=== PATIENT | male | born 1955 | race Caucasian/White ===

== ENCOUNTER 2017-02-16 11:10 | Inpatient (IN) | payer BC ==
[~2017-02-16] VITALS: Ht 182.9 cm; Wt 83.3 kg
--- NOTE | ~2017-02-16 | HEMODYNAMI ---
PATIENT:AKI MOSS MEDICAL RECORD: [id number] : 51 LOCATION:[facility] D.2118 ADMISSION DATE: 02/16/17 Generatedon:02/17/201712:25 Patient name: AKI MOSS Patient #: [id number] SSN: DO B: 1955 Date of study: 02/17/2017 Page: Of Hemodynamic Procedure Report Patient Data Patient Demographics Procedure consent was obtained First Name: AKI Gender: Male Last Name: AJAY : 1955 [facility] Initial: SAIMA Age: 61 year(s) Patient #: [id number] Race: Unknown Additional ID: [id number] Contact details Address: [address] [place] [address] [facility] State: [place] City: [place] Zip code: [address] Past Medical History Allergies Allergen Reaction Date Comments Reported Iodine 02/17/2017 Admission Admission Data Admission Date: 02/16/2017 Admission Time: 13:27 Room #: D2118 Lab Results Lab Result Date: 02/17/2017 Lab Result Time: 0:00 Biochemistry Name Units Result Min Max BUN mg/dl 15 --(--*-)-- 7 18 Creatinine mg/dl 1.1 --(--*-)-- 0.6 1.3 CBC Name Units Result Min Max Hemoglobin g/dl 14.3 --(*---)-- 13.5 17.5 Procedure Procedure Types Cath Procedure Diagnostic Procedure LHC LHC w/Coronaries Miscellaneous Procedures Moderate Sedation up to 15 minutes Procedure Description Procedure Date Procedure Date: 02/17/2017 Procedure Start Time: 12:10 Procedure End Time: 12:23 Procedure Staff Name Function Trevin Simons MD Performing Physician Nicole Vyas RN Nurse Bora Muhammad RT Monitor Danis Whitfield RT Scrub Procedure Data Cath Procedure Fluoroscopy Diagnostic fluoroscopy Total fluoroscopy Time: 1.9 time: 1.9 min min Diagnostic fluoroscopy Total fluoroscopy dose: 383 dose: 383 mGy mGy Contrast Material Contrast Material Type Amount (ml) Isovue 300 55 Entry Location Entry Primary Successful Side Size Upsize Upsize Entry Closure Mcclendon ccessful Closure Location (Fr) 1 (Fr) 2 (Fr) Remarks Device Remarks Radial Right 6 Fr Mechanical artery Short Compression Diagnostic catheters Device Type Used For End Catheter Placement Terumo 5Fr [place] 110cm LV Angiography catheter Procedure Complications No complications Procedure Medications Medication Administration Route Dosage Oxygen NC 2 l/min Heparin Flush Bag added to field 2 bags (1000units/500ml NS) Lidocaine 2% added to field 20 Radial Cocktail added to field 1 syringe (Verapomil 2mg/Nitro 400mcg/Heparin 1500units) Benadryl I.V. 25 mg Versed I.V. 1 mg Fentanyl I.V. 50 mcg Versed I.V. 1 mg Fentanyl I.V. 50 mcg Radial Cocktail I.A. 1 syringe (Verapomil 2mg/Nitro 400mcg/Heparin 1500units) Hemodynamics Rest Heart Rate: 82 (bpm) Pressure Samples Time Site Value (mmHg) Purpose Heart Use Rate(bpm) 12:15 LV 109/5,7 EDP 82 12:15 AO 114/68(89) Pullback 77 12:15 LV 120/7,9 Pullback 77 Gradients Valve Time Site 1 Site 2 Mean SEP/DFP Peak To Heart Use (mmHg) (sec/min) Peak Rate (mmHg) (bpm) Aortic 12:15 LV AO 4 15 6 77 120/7,9 114/68(89) Calculations Valve P-P Mean Valve Index Valve Source Name Gradient Area Flow (cm2) Aortic 6 4 6 4 Snapshots Pre Cath Intra NCS Post Cath Vital Signs Time Heart Resp SPO2 etCO2 UX2aedh NIBP (mmHg) Rhythm Pain Sedation Rate (ipm) (%) (mmHg) (mmHg) Status Level (bpm) 12:03:31 76 24 95 0 0 153/85(118) NSR 0 (11) 10(A) , No pain 12:07:49 74 16 97 0 0 142/78(108) NSR 0 (11) 10(A) , No pain 12:12:03 76 16 96 0 0 140/86(118) NSR 0 (11) 10(A) , No pain 12:16:17 71 16 96 0 0 112/67(95) NSR 0 (11) 9(A) , No pain 12:20:27 79 14 96 0 0 115/68(87) NSR 0 (11) 9(A) , No pain 12:22:21 76 14 96 0 0 123/74(108) NSR 0 (11) 9(A) , No pain Medications Time Medication Route Dose Verified Delivered Reason Notes Effectiveness by by 12:02:35 Oxygen NC 2 l/min Trevin Nicole Per [facility] Anthony fernandez MD 12:02:43 Heparin Flush added 2 bags Trevin Trevin used for Bag to [place] procedure (1000units/500ml field MD WRIGHT NS) 12:02:50 Lidocaine 2% added 20ml Trevin Trevin used for to vial Kristyn [place] procedure field MD WRIGHT 12:03:02 Radial Cocktail added 1 Trevin Trevin used for (Verapomil to syringe Kristyn [place] procedure 2mg/Nitro field MD WRIGHT 400mcg/Heparin 1500units) 12:03:58 Benadryl I.V. 25 mg Trevin Nicole Per [facility] Anthony fernandez MD 12:09:32 Versed I.V. 1 mg Trevin Nicole for sedation [facility]. Anthony Vyas RN, MD 12:09:52 Fentanyl I.V. 50 mcg Trevin Nicole for sedation [facility]. Anthony Vyas RN, MD 12:11:26 Radial Cocktail I.A. 1 Trevin Trevin for (Verapomil syringe Kristyn Kristyn vasodilation 2mg/Nitro MD WRIGHT 400mcg/Heparin 1500units) 12:12:30 Versed I.V. 1 mg Trevin Nicole for sedation [facility] Anthony Vyas RN, MD 12:12:41 Fentanyl I.V. 50 mcg Trevin Nicole for sedation [facility]. Anthony Vyas RN, MD Procedure Log Time Note 11:30:38 Bora Muhammad RT(R) sent for patient. Start room use. 11:37:48 Time tracking: Regular hours 11:37:53 Plan of Care:Hemodynamics will remain stable., Cardiac rhythm will remain stable., Comfort level will be maintained., Respiratory function will remain adequate., Patient/ family verbilizes understanding of procedure., Procedure tolerated without complication., Recovers from procedure without complications.. 11:40:34 Patient allergic to Iodine 11:41:20 Lab Result : BUN 15 mg/dl 11::20 Lab Result : Creatinine 1.1 mg/dl 11:41:20 Lab Result : Hemoglobin 14.3 g/dl 11:47:25 Patient received from PCU to CCL 1 Alert and oriented. Tansferred to table in Supine position. 11:47:27 Warm blankets applied, and claudia hugger turned on for patient comfort. 11:47:27 Correct patient and procedure confirmed by team. 11:47:28 Signed procedure consent form obtained from patient. 11:47:29 ECG and BP/O2 sat monitors applied to patient. 11:51:08 IV left antecubital D/C'd due to infiltration. 11:51:25 Is the patient allergic to Iodine/contrast media? Yes. 11:51:27 Was the patient premedicated? Yes 11:51:45 H&P Date Dictated: 02/16/2017 Within 30 days and on chart.. 11:51:46 Pre-procedure instructions explained to patient. 11:51:47 Pre-op teaching completed and patient verbalized understanding. 11:51:50 Family in patients room. 11:51:58 Patient NPO since Breakfast. 11:54:24 IV started by Nicole Vyas RN inleft forearm with a 20 gauge IV catheter with 0.9% NaCl at KVO. 11:54:31 Lab results completed and on chart. 12:02:24 Vital chart was started 12:02:35 Oxygen 2 l/min NC was administered by Nicole Vyas RN; Per physician; 12:02:43 Heparin Flush Bag (1000units/500ml NS) 2 bags added to field was administered by Trevin Simons MD; used for procedure; 12:02:50 Lidocaine 2% 20ml vial added to field was administered by Trevin Simons MD; used for procedure; 12:03:02 Radial Cocktail (Verapomil 2mg/Nitro 400mcg/Heparin 1500units) 1 syringe added to field was administered by Trevin Siomns MD; used for procedure; 12:03:58 Benadryl 25 mg I.V. was administered by Nicole Vyas RN; Per physician; 12:07:50 Is patient on blood thinner?No 12:07:54 ACC The patient was administered the following blood thiners within the last 24 hours: ACCAspirin 12:07:56 Patient diabetic? No. 12:07:57 ----Pre-sedation anethsthesia assessment.---- 12:07:59 Previous problem with sedation/anesthesia? No ? 12:08:00 Snore? No 12:08:03 Sleep apnea? No 12:08:06 Deviated septum? No 12:08:08 Opens mouth fully? Yes 12:08:09 Sticks out tongue? Yes 12:08:11 Airway obstruction? No ? 12:08:21 Dentures? No ? 12:08:25 Pre procedure: right dorsailis pedis pulse 1+ Palpable, but thready & weak; easily obliterated 12:08:29 Modified Gopal's test Ulnar < 7 seconds 12:08:46 Patient pain scale 0/10 ?. 12:08:50 Right Radial & Right Groin area was prepped with chlora-prep and draped in sterile fashion 12:08:51 Alarms reviewed by R. N. 12:08:52 Sharps counted by scrub and verified by R.N. 12:08:52 --------ALL STOP TIME OUT------ 12:08:53 Final Timeout: patient, procedure, and site verified with staff and physician. All members of the team are in agreement. 12:08:55 Right Radial & Right Groin site verified by team. 12:08:58 Physical assessment completed. ASA score P 2 - A patient with mild systemic disease as per Trevin Simons MD. 12:09:03 Sedation plan: IV Moderate Sedation Versed, Fentanyl 12:09:14 Use device set Radial Dx 12:09:15 Acist Syringe opened to sterile field. 12:09:15 Medline Cath Pack opened to sterile field. 12:09:15 Bag Decanter opened to sterile field. 12:09:16 Terumo 6Fr Slender Glidesheath opened to sterile field. 12:09:16 St Harish 260cm J .035 wire opened to sterile field. 12:09:17 Acist Hand Control opened to sterile field. 12:09:17 Acist Manifold opened to sterile field. 12:09:17 Tegaderm 4 x 4 opened to sterile field. 12:09:18 MBrace Wrist Support opened to sterile field. 12:09:32 Versed 1 mg I.V. was administered by Nicole Vyas RN; for sedation; 12:09:52 Fentanyl 50 mcg I.V. was administered by Nicole Vyas RN; for sedation; 12:10:48 Procedure started. 12:10:48 Full Disclosure recording started 12:10:57 Local anesthetic to right radial artery with Lidocaine 2% by Trevin Simons MD.INITIAL ACCESS ONLY 12:11:13 A 6 Fr Short sheath was inserted into the Right Radial artery 12:11:24 A Terumo 5Fr [place] 110cm catheter was advanced over the wire and used for LV Angiography. 12:11:26 Radial Cocktail (Verapomil 2mg/Nitro 400mcg/Heparin 1500units) 1 syringe I.A. was administered by Trevin Simons MD; for vasodilation; 12:11:27 Zero performed for pressure channel P1 12:12:30 Versed 1 mg I.V. was administered by Nicole Vyas RN; for sedation; 12:12:41 Fentanyl 50 mcg I.V. was administered by Nicole Vyas RN; for sedation; 12:14:15 Zero performed for pressure channel P1 12:14:19 Zero performed for pressure channel P1 12:15:32 LV angiography performed. 12:15:34 LV gram done using BAUTISTA 12:16:06 EF : 55 % 12:16:17 LV hemodynamics recorded. 12:16:20 Injector settings: Ml/sec: 5, Volume: 15, 12:16:57 LCA angiography performed. 12:19:21 Catheter removed. 12:19:29 Terumo TR Band Standard opened to sterile field. 12:19:37 Contrast amount:Isovue 300 55ml. 12:19:44 Sheath removed intact; hemostasis achieved with Mechanical Compression to the Right Radial artery. 12:20:56 Procedure ended.(Physican Out) 12:21:54 Fluoroscopy time 01.90 minutes. 12::59 Fluoroscopy dose: 383 mGy 12::59 Flurop Dose total: 383 12:22:01 Sharps counted by scrub and verified by R.N. 12:22:04 TR band inflated with 10cc of air. 12:22:05 Insertion/operative site no bleeding no hematoma. 12:22:08 Post-op/insertion site Right Femoral artery dressed using a 4 x 4 and Tegaderm. 12:22:12 Post right femoral artery:stable 12:22:13 Post Procedure Pulses reassessed and unchanged 12:22:18 Post procedure rhythm: sinus rhythm 12:22:20 Post procedure instruction explained to patient.Patient verbalizes understanding. 12:22:21 Procedure and supply charges have been captured, reviewed, submitted and are correct. 12:22:50 Procedure Complication : No complications 12::54 Vital chart was stopped 12::54 See physician's report for complete and final results. 12:23:00 Report given to PCU. 12:23:04 Patient transfered to PCU with Bed. 12:23:06 Procedure ended. 12:23:06 Full Disclosure recording stopped 12:23:17 End room use (Document Last) 12:23:35 Procedure type changed to Cath procedure, Diagnostic procedure, LHC, LHC w/Coronaries, Miscellaneous Procedures, Moderate Sedation up to 15 minutes Device Usage Item Name Manufacture Quantity Catalog Hospital Part Current Minimal Lot# / Number Charge Number Stock Stock Serial# Code Acist Acist 1 87799 267692 534409 015783 20 Syringe Medical Systems Inc Medline Cardinal 1 [id number] 48982 403260 5 Cath Pack Health Bag Microtek 1 2001S 691217 07127 062002 5 DecDARA [employer] Terumo 6Fr Terumo 1 [id number] 205095 026618 218814 [address] St Harish 1 [id number] 593104 096446 410432 30 260cm J .035 wire Acist Hand Acist 1 57068 590107 650410 451578 5 Control Medical Systems Inc Acist Acist 1 34704 677199 976613 388849 5 Manifold Medical Systems Inc Tegaderm 4 3M 1 1626W 373262 708341 775887 5 x 4 MBrace Advanced 1 140-0250-00 124849 08094 018986 5 Wrist Vascular Support Dynamics Terumo 5Fr Terumo 1 40-9669 301554 176324 601554 5 [place] 110cm catheter Terumo TR Terumo 1 [id number] 864858 920258 639176 40 Band Standard Signature Audit Semora Stage Time Signature Unsigned Intra-Procedure 02/17/2017 Bora Muhammad 12:25:09 PM RT(R) Signatures Monitor : Bora Muhammad RT Signature : Date : Time : [place] [id number] [place] [address]
[2017-02-16 11:44] LABS: BASOPHILS 0.5 % (0.0-2.0); EOSINOPHILS 2.7 % (0-7); HEMATOCRIT 40.9 % (42.0-54.0); HEMOGLOBIN 14.3 g/dL (13.5-17.5); IMMATURE GRANULOCYTES 0.3 % (0-5); LYMPHOCYTES 30.6 % (15-50); MCH 30.9 pg (26.0-34.0); MCV 88.3 fL (80.0-100.0); MEAN PLATELET VOLUME 8.5 fL (7.4-10.4); MONOCYTES 5.9 % (2-11); PLATELET COUNT 211 10x3/uL (130-400); RBC 4.63 10x6/uL (4.20-6.10); WBC 9.9 10x3/uL (4.8-10.8)
[2017-02-16 11:59] LABS: ALBUMIN 3.7 g/dL (3.4-5.0); ALKALINE PHOSPHATASE 107 U/L (46-116); ALT (SGPT) 24 U/L (10-68); CALC OSMOLALITY 280 mosm/kg (275-300); CARBON DIOXIDE 27.4 mmol/L (21.0-32.0); CHLORIDE - SERUM 103 mmol/L (98-107); CREATININE - SERUM 0.9 mg/dL (0.6-1.3); GLUCOSE 107 mg/dL (74-106); POTASSIUM - SERUM 4.2 mmol/L (3.5-5.1); PROTEIN - SERUM 7.6 g/dL (6.4-8.2); SODIUM 140 mmol/L (136-145); UREA NITROGEN 18 mg/dL (7-18); eGFR NON AFRICAN AMERICAN > 90 mL/min (90-120)
[2017-02-16 12:11] LABS: CHOL - HDL RATIO 5.2 ratio (2.3-4.9); CHOLESTEROL, TOTAL 202 mg/dL (0-200); CREATINE KINASE 249 UL (21-232); HDL CHOLESTEROL 39 mg/dL (32-96); LDL CHOLESTEROL 117 mg/dL (0-100); TRIGLYCERIDE 231 mg/dL (30-200)
[2017-02-16 12:12] LABS: TROPONIN-I < 0.017 ng/mL (0.000-0.060)
[2017-02-16] MEDS ORDERED: LISINOPRIL10 MG PO (15:35)
[2017-02-16] MEDS ORDERED: TRAZODONE HCL50 MG PO (15:36)
[2017-02-16 16:11] VITALS: BP 131/71
[2017-02-16 17:37] VITALS: BP 131/71; BMI 23.1
--- NOTE | 2017-02-16 17:40 | NUR ---
PT IS ALERT. ASSESSMENT DONE PER GODFREY. NO OTHJER NEEDS AT THIS TIME. WILL CONTINUE TO MONITOR.
--- NOTE | 2017-02-16 19:46 | NUR ---
RESUMED CARE OF PT, LYING IN BED RESPIRATIONS EVEN AND UNLABORED ON 2LPM VIA NC. 76 SR ON TELEMETRY. LEFT AC SALINE LOCKED. NO NEEDS VOICED AT THIS TIME. CALL LIGHT IN REACH. WILL CONTINUE TO MONITOR. SEE NURSE ASSESSMENT.
[2017-02-17] VITALS: BP 128/70
--- NOTE | 2017-02-17 02:19 | NUR ---
LYING IN BED, CALL LIGHT IN REACH. WILL CONTINUE WITH PLAN OF CARE. 61 SR ON TELEMETRY
[2017-02-17 04:00] VITALS: BP 151/78
[2017-02-17 08:04] VITALS: BP 149/77
[2017-02-17 09:22] LABS: BASOPHILS 0.4 % (0.0-2.0); EOSINOPHILS 1.8 % (0-7); HEMATOCRIT 40.6 % (42.0-54.0); HEMOGLOBIN 14.3 g/dL (13.5-17.5); IMMATURE GRANULOCYTES 0.2 % (0-5); LYMPHOCYTES 31.6 % (15-50); MCH 30.6 pg (26.0-34.0); MCHC 35.2 g/dL (31.0-37.0); MCV 86.9 fL (80.0-100.0); MEAN PLATELET VOLUME 8.5 fL (7.4-10.4); MONOCYTES 6.8 % (2-11); NEUTROPHILS 59.2 % (40-80); PLATELET COUNT 212 10x3/uL (130-400); RBC 4.67 10x6/uL (4.20-6.10); RDW 12.9 % (11.5-14.5); WBC 9.9 10x3/uL (4.8-10.8)
[2017-02-17 09:31] LABS: CALCIUM 8.9 mg/dL (8.5-10.1); CREATININE - SERUM 1.1 mg/dL (0.6-1.3)
--- NOTE | 2017-02-17 09:32 | NUR ---
TELEMETRY SR. RESP UL ON 02 2L NC. CALL LIGHT IN REACH. WILL CONT. PLAN OF CARE.
--- NOTE | 2017-02-17 11:49 | NUR ---
PRE-OPS GIVEN. TO LIFT MANAGER BY BED.
--- NOTE | 2017-02-17 12:54 | NUR ---
BACK FROM CORRECTIVE AND MANUAL ARTS THERAPIST. VS WNL. RIGHT WRIST STABLE WITH TR BAND INTACT. WILL MONITOR.
--- NOTE | 2017-02-17 15:00 | NUR ---
TR BAND DCD WITHOUT BLEEDING OR HEMATOMA NOTED. WILL MONITOR.
--- NOTE | 2017-02-17 16:07 | NUR ---
CR IONIZED CA+ CALLED TO SHAINA HENNESSY FOR DR. PRINCE.
--- NOTE | 2017-02-17 19:00 | NUR ---
RECEIVED REPORT AND ASSUMED PT CARE FROM DAY SHIFT NURSE @ THIS TIME.
[2017-02-17 21:18] VITALS: BP 176/96
[2017-02-18 00:23] VITALS: BP 128/64
[2017-02-18 04:25] VITALS: BP 112/52
[2017-02-18 07:00] VITALS: BP 134/71
--- NOTE | 2017-02-18 07:41 | NUR ---
RECEIVED PT IN BED AAOX 4 RESP UNLABORED DENIES ANY NEEDS OR DISCOMFORT NAD NOTED
[2017-02-18 12:00] VITALS: BP 116/63
[2017-02-18 14:20] LABS: COLD SCREEN @ 4 DEGREES NEGATIVE (NEGATIVE); COLD SCREEN ROOM TEMP NEGATIVE (NEGATIVE)
[2017-02-18 16:00] VITALS: BP 122/65
--- NOTE | 2017-02-18 19:15 | NUR ---
INITIAL ROUNDS MADE. PT SITTING UP IN BED WITH FAMILY IN ROOM. DISCUSSED PLAN OF CARE. PT DENIES NEEDS OR CONCERNS AT THIS TIME. CALL LIGHT IN REACH. WILL CONT TO MONITOR.
[2017-02-18 20:47] VITALS: BP 132/68
--- NOTE | 2017-02-18 23:25 | NUR ---
SPLIT AND DRUM ROOM SUPERVISOR AT BEDSIDE FOR VS. NEEDS ADDRESSED, CALL LIGHT IN REACH. WILL CONT TO MONITOR.
[2017-02-19 00:24] VITALS: BP 153/78
[2017-02-19 04:39] VITALS: BP 146/71
[2017-02-19 05:01] LABS: BASOPHILS 0.2 % (0.0-2.0); HEMATOCRIT 36.4 % (42.0-54.0); HEMOGLOBIN 12.5 g/dL (13.5-17.5); IMMATURE GRANULOCYTES 0.3 % (0-5); LYMPHOCYTES 24.9 % (15-50); MCHC 34.3 g/dL (31.0-37.0); MCV 87.5 fL (80.0-100.0); MEAN PLATELET VOLUME 8.4 fL (7.4-10.4); MONOCYTES 10.5 % (2-11); NEUTROPHILS 63.1 % (40-80); PLATELET COUNT 200 10x3/uL (130-400); RBC 4.16 10x6/uL (4.20-6.10)
[2017-02-19 05:06] LABS: WBC 14.5 10x3/uL (4.8-10.8)
[2017-02-19 05:09] LABS: HEMOGLOBIN A1C 5.2 % (4.8-6.0)
[2017-02-19 05:11] LABS: APTT 25.2 SECONDS (22.8-39.4); INR 0.92 (0.85-1.17); PROTIME 12.2 SECONDS (11.6-15.0)
--- NOTE | 2017-02-19 05:15 | NUR ---
NO CHANGES IN ASSESSMENT. CALL LIGHT IN REACH. DENIES NEEDS. CONT TO MONITOR.
[2017-02-19 05:28] LABS: ALBUMIN 3.1 g/dL (3.4-5.0); ALKALINE PHOSPHATASE 95 U/L (46-116); ALT (SGPT) 19 U/L (10-68); BILIRUBIN - TOTAL 0.47 mg/dL (0.2-1.3); CALC OSMOLALITY 284 mosm/kg (275-300); CALCIUM 7.8 mg/dL (8.5-10.1); CARBON DIOXIDE 26.5 mmol/L (21.0-32.0); CHLORIDE - SERUM 106 mmol/L (98-107); CHOLESTEROL, TOTAL 199 mg/dL (0-200); GLUCOSE 111 mg/dL (74-106); PHOSPHOROUS 3.4 mg/dL (2.5-4.9); POTASSIUM - SERUM 3.9 mmol/L (3.5-5.1); PROTEIN - SERUM 6.6 g/dL (6.4-8.2); SODIUM 141 mmol/L (136-145); T4 THYROXIN - FREE 0.85 ng/dL (0.76-1.46); THYROID STIMULATING HORMONE 3.98 uIU/mL (0.36-3.74); URIC ACID 5.5 mg/dL (2.6-7.2); eGFR NON AFRICAN AMERICAN 80 mL/min (90-120)
[2017-02-19 05:29] LABS: UREA NITROGEN 20 mg/dL (7-18)
--- NOTE | 2017-02-19 07:30 | NUR ---
RECEIVED PT IN BED AAOX 4 RESP UNLABORED O2 ON 3LPM NC PT DENIES ANY NEDDS C/O ACHING CHEST PAIN 03/06 REFUSES MEDICATION FROR PAIN WILL CONTINUE TO MONITOR
[2017-02-19 08:00] VITALS: BP 157/84
[2017-02-19 12:28] LABS: APPEARANCE CLEAR (CLEAR); BILIRUBIN NEGATIVE (NEGATIVE); COLOR YELLOW (YELLOW); GLUCOSE NEGATIVE (NEGATIVE); KETONE NEGATIVE (NEGATIVE); LEUKOCYTE ESTERASE NEGATIVE (NEGATIVE); NITRITE NEGATIVE (NEGATIVE); PROTEIN NEGATIVE (NEGATIVE); SPECIFIC GRAVITY 1.015 (1.005-1.020); UROBILINOGEN NORMAL (NORMAL)
[2017-02-19 13:01] VITALS: BP 154/80
[2017-02-19 16:39] VITALS: BP 131/68
--- NOTE | 2017-02-19 19:38 | NUR ---
RESUMED CARE OF PT, LYING IN BED RESPIRATIONS EVEN AND UNLABORED ON 3LPM VIA NC. 81 SR ON TELEMETRY. LEFT WRIST SALINE LOCKED. FAMILY AT BEDSIDE AND PLAN OF CARE DISCUSSED. NO NEEDS VOICED AT THIS TIME. WILL CONTINUE TO MONITOR. SEE NURSE ASSESSMENT.
[2017-02-19 20:00] VITALS: BP 163/88
--- NOTE | 2017-02-19 21:20 | NUR ---
CLIPPED PER ORDERS, IN SHOWER. LINENS CHANGED. WILL CONTINUE TO MONITOR.
[2017-02-20] VITALS (39 sets, daily range): BP systolic 91–159; BP diastolic 49–84; Ht 182.9 cm; Wt 83.3 kg
--- NOTE | 2017-02-20 06:19 | NUR ---
PREOP MEDS GIVEN AND GONE TO OR.
[2017-02-20 08:40] LABS: PLT FUNCT.(P2Y12) PLAVIX 293 PRU (194-418)
[2017-02-20 14:43] LABS: HEMATOCRIT 28.2 % (42.0-54.0); HEMOGLOBIN 9.9 g/dL (13.5-17.5); MCH 30.7 pg (26.0-34.0); MCHC 35.1 g/dL (31.0-37.0); MCV 87.6 fL (80.0-100.0); MEAN PLATELET VOLUME 8.4 fL (7.4-10.4); RBC 3.22 10x6/uL (4.20-6.10); RDW 12.9 % (11.5-14.5); WBC 20.6 10x3/uL (4.8-10.8)
--- NOTE | 2017-02-20 14:48 | NUR ---
1448- REC'D PT FROM OR. PT WAKING UP FROM ANESTHESIA. MOVING HANDS. WRIST RESTRAINTS APPLIED BILATERAL. R/T AT BEDSIDE TO MANAGE VENTILATOR. SEE FLOWSHEET FOR GTT RATES. SEE FLOWSHEET FOR ASSESSMENT. 1600- PT AWAKE. WEANING PROCESS INITIATED PER ORDER. 1700- DR PRINCE AT BEDSIDE. TEMP PM CHANGED TO VVI 60. PT SR ON CM, RATE 92. 1748- PT EXTUBATED PER R/T. 4 LPM VIA N.C. 02 SAT 98%. TOLERATING WELL. 1929- REPORT GIVEN TO BOB BALLESTEROS RN. DR PRINCE NOTIFIED OF RESULTED H&H. ORDERS REC'D TO TRANSFUSE 2 UNITS PRBC'S. BOB BALLESTEROS RN NOTIFIED.
[2017-02-20 15:05] LABS: APTT 38.6 SECONDS (22.8-39.4); INR 1.27 (0.85-1.17); PROTIME 15.7 SECONDS (11.6-15.0)
[2017-02-20 15:10] LABS: CALCIUM 7.6 mg/dL (8.5-10.1); CARBON DIOXIDE 23.9 mmol/L (21.0-32.0); CHLORIDE - SERUM 109 mmol/L (98-107); CREATININE - SERUM 0.8 mg/dL (0.6-1.3); SODIUM 144 mmol/L (136-145); eGFR NON AFRICAN AMERICAN > 90 mL/min (90-120)
[2017-02-20 15:11] LABS: CALC OSMOLALITY 292 mosm/kg (275-300); GLUCOSE 182 mg/dL (74-106); POTASSIUM - SERUM 4.5 mmol/L (3.5-5.1); UREA NITROGEN 14 mg/dL (7-18)
--- NOTE | 2017-02-20 17:40 | OP ---
PATIENT NAME: AKI MOSS MEDICAL RECORD: [id number] :51 LOCATION:[facility] D.2305 ADMISSION DATE:02/16/17 SURGEON: RUSS RIVAS MD DATE OF OPERATION: 02/20/2017 SURGEON: Russ Rivas MD ANESTHESIA: General anesthesia by Dr. Plascencia. PREOPERATIVE DIAGNOSES: Urethral stricture and unstable angina. FINDINGS: Focal bulbar urethral stricture. PROCEDURE: Cystoscopy, urethral stricture dilation, Mcdowell catheter insertion over a guidewire (16-Slovak Mcdowell). SPECIMENS: None. COMPLICATIONS: None. ESTIMATED BLOOD LOSS: None. 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 He has ongoing chest pain from unstable angina and Dr. Mason is to perform a coronary artery bypass graft surgery today. The patient has a history of a urethral stricture. A urologist in [place], [place] had tried to dilate it and caused an extreme amount of bleeding. Dr. Mason thus requested that I insert the Mcdowell catheter on the patient during his surgery. I am using a flexible cystoscope in order to visualize my way in and to negotiate around the urethral stricture. DESCRIPTION OF THE PROCEDURE: The patient was given induction of general anesthesia. He was in supine position. He was then prepped and draped. A flexible cystoscope was used. The anterior urethra was normal. In the bulbar urethra was a focal annular stricture. No tumors of any kind were seen. The prostatic urethra was nonobstructive and the bladder had single ureteral orifices with no bladder tumors. With a little bit of force, the scope itself was able to dilate the urethral stricture. Once we were in the bladder, a guidewire was placed through the scope into the bladder. The scope was then backed out while leaving the wire in place. A 16-Slovak kake tip Mcdowell catheter was then inserted over the guidewire into the bladder. This was put to bag drainage. The balloon was inflated with 10 cc of sterile water. The patient will then be prepped and draped, ready for Dr. Mason's surgery. TRANSINT:[id number] Voice Confirmation ID: [id number] DOCUMENT ID: [id number] RUSS RIVAS MD at 1743 CC: [id number] DICTATION DATE: 02/20/1742 EXTERIOR DOOR INSTALLER: 02/20/17 0856 ADM IN [facility] [address] [facility]
--- NOTE | 2017-02-20 19:30 | NUR ---
REPORT REC'D AND CARE ASSUMED, PT RESTING IN BED ON O2 @ 3LITERS VIA NC, AWAKE, ALERT, ORIENTED X 3, MIDSTERNAL DRSG CDI, RIJ MICHAEL LLOYD DRSG CDI WITH MANNIFOLD TO PROXMIAL INFUSION WITH PLASMALYTE @ 100CC/HR AND DOPAMINE @ 14.4CC/HR OR 5MCG/KG/MIN, CORDIS WITH 3 PRONG EXTENSION WITH INSULIN @ 2 UNITS/HR, BURETROL @ 10CC/HR, ZINACEF @ 11.4CC/HR AND MORPHINE PROJECT BUILDER 1MG Q10MIN WITH 24MG Q4HR LOCKOUT, LDSCL DRSG CDI WITH NITROGLYCERIN ON HOLD, RIGHT RADIAL ZACKERY WITH FLEXION BOARD IN USE, LEVELED AND ZEROED WITH RETURN OF APPROPRIATE WAVEFORM, SUBSTERNAL DRSG CDI, EXTERNAL P/M VVI 60 VMA 10, CM-SR @ 92, MEDIASTINAL CT'S X [address] X 1, ALL TO 20CM H2O SUCTION, NO AIR LEAK NOTED, SANGUINOUS DRAINAGE NOTED, DRSG CDI, CRITICORE DELAROSA PATENT DRAINING CLEAR YELLOW URINE, COBAN DRSG TO RIGHT CDI WITH TESS DRAINS COMPRESSED X 2 WITH SANGUINOUS DRAINAGE, BILAT ANALI/SCD TO LEFT LOWER LEG, SR UP X 2, PROJECT BUILDER BUTTON IN REACH, 1:[address]
--- NOTE | 2017-02-20 19:50 | NUR ---
PT COMPLAINS OF NAUSEA, 4MG ZOFRAN GIVEN SLOW IVP, SERUM H AND H SENT TO LAB
--- NOTE | 2017-02-20 20:00 | NUR ---
PT COMPLAINS OF BEING HOT, EXTRA BLANKETS REMOVED AT THIS TIME, PT REPORTS PAIN IMPROVED, AWAITING K PAD FROM POWER LINE INSTALLER AND REPAIRER.
[2017-02-20 20:10] LABS: HEMATOCRIT 20.8 % (42.0-54.0)
[2017-02-20 20:12] LABS: HEMOGLOBIN 7.5 g/dL (13.5-17.5)
--- NOTE | 2017-02-20 20:25 | NUR ---
1ST UNIT ORDERED PRBC BEGUN AT THIS TIME
--- NOTE | 2017-02-20 21:15 | NUR ---
SON AT BS, UPDATE GIVEN AND QUESTIONS ANSWERED, PT TOLERATING A FEW ICE CHIPS INTERMITTENTLY, STATES " NAUSEATED JUST A LITTLE", EVENING MEDS HELD AT THIS TIME.
--- NOTE | 2017-02-20 21:30 | NUR ---
1ST UNIT PRBC COMPLETED WITH NO SIGNS OR SYMPTOMS OF REACTION, PT VISITING WITH SON, VSS
--- NOTE | 2017-02-20 21:35 | NUR ---
2ND UNIT PRBC BEGUN AT THIS TIME, PT DOZING AT INTERVALS, WEANING DOPAMINE TOLERATED
--- NOTE | 2017-02-20 21:50 | NUR ---
PT STATES " I AM FEELING SICK AGAIN I THINK IT IS THE MORPHINE", 5MG REGLAN GIVEN SLOW IVP, PT DENIES FURTHER NEEDS.
--- NOTE | 2017-02-20 22:55 | NUR ---
RT AT BS FOR ABG AND TREATMENT
--- NOTE | 2017-02-20 23:15 | NUR ---
IS DONE WITH PT PULLED 1000 X 3 500 X 4 AND 750 X 3, PRODUCTIVE SOUNDING COUGH NOTED, PT PROVIDED WITH HEART PILLOW AND APPROPRIATE SPLINTING TECHNIQUE DEMONSTRATED, PT VERBALIZES UNDERSTANDING, REPOSITIONED ONTO RIGHT SIDE WARM PACK TO LEFT SIDE OF BACK, PT USING MORPHINE FLORAL DESIGN TEACHER FOR PAIN CONTROL.
--- NOTE | 2017-02-20 23:45 | NUR ---
PT'S O2 WEANED TO 2LITERS, O2 SAT 98% , SIPS OF ICE WATER GIVEN ON REQUEST, NO FURTHER NAUSEA AT THIS TIME
[2017-02-21] VITALS (100 sets, daily range): BP systolic 113–161; BP diastolic 44–89
--- NOTE | 2017-02-21 01:30 | NUR ---
PT REPOSITIONED UP IN BED AND ONTO LEFT SIDE SUPPORTED WITH PILLOW, CONTINUING TO WEAN DOPAMINE, WARM PACK TO LEFT SCAPULA AREA PER REQUEST, VSS, WILL CONT TO MONITOR FOR CHANGES.
--- NOTE | 2017-02-21 02:15 | NUR ---
PT UNCOMFORTABLE IN BED, HESITANT TO USE MORPHINE DUE TO PREVIOUS NAUSEA, 30MG TORADOL GIVEN FOR BACK AND SHOULDER PAIN, VSS.
--- NOTE | 2017-02-21 03:00 | NUR ---
RT AT BS FOR BREATHING TX, ABG AND EKG OBTAINED, PO2 61, O2 INCREASED TO 3LITERS, PT PULLING 750-1000 ON IS, NONPRODUCTIVE COUGH NOTED, WILL CONT TO MONITOR CLOSELY FOR CHANGES
--- NOTE | 2017-02-21 03:35 | NUR ---
RADIOLOGY @ BS FOR CXR, PT REPOSITIONED ONTO BACK FOR COMFORT, HOB ELEVATED, PT TOLERATED WELL
--- NOTE | 2017-02-21 04:25 | NUR ---
BP ELEVATED NITROGLYCERIN BEGUN @ 4CC/HR, WILL MONITOR CLOSELY AND TITRATE FOR SBP LESS THAN 140 ORDERED
--- NOTE | 2017-02-21 05:45 | NUR ---
AM LAB DRAWN FROM CVL AND SENT TO LAB, PT RESTING EYES CLOSED, RESP EVEN AND UNLABORED VSS.
--- NOTE | 2017-02-21 06:15 | NUR ---
NO VISITORS IN AT THIS TIME, TITRATING NITROGLYCERIN FOR EFFECT, PT RESTING EYES CLOSED, NO DISTRESS NOTED, WILL CONT TO MONITOR.
[2017-02-21 06:32] LABS: ALBUMIN 3.3 g/dL (3.4-5.0); ALKALINE PHOSPHATASE 42 U/L (46-116); ALT (SGPT) 19 U/L (10-68); BILIRUBIN - TOTAL 1.09 mg/dL (0.2-1.3); CALCIUM 7.5 mg/dL (8.5-10.1); CARBON DIOXIDE 28.2 mmol/L (21.0-32.0); CHLORIDE - SERUM 107 mmol/L (98-107); POTASSIUM - SERUM 4.2 mmol/L (3.5-5.1); PROTEIN - SERUM 5.3 g/dL (6.4-8.2); SODIUM 141 mmol/L (136-145); eGFR NON AFRICAN AMERICAN 80 mL/min (90-120)
[2017-02-21 06:33] LABS: CALC OSMOLALITY 282 mosm/kg (275-300); GLUCOSE 107 mg/dL (74-106); UREA NITROGEN 18 mg/dL (7-18)
[2017-02-21 06:51] LABS: HEMATOCRIT 23.4 % (42.0-54.0); HEMOGLOBIN 8.2 g/dL (13.5-17.5); MCH 30.4 pg (26.0-34.0); MCV 86.7 fL (80.0-100.0); MEAN PLATELET VOLUME 8.6 fL (7.4-10.4); RBC 2.7 10x6/uL (4.20-6.10); RDW 13.3 % (11.5-14.5); WBC 11.8 10x3/uL (4.8-10.8)
--- NOTE | 2017-02-21 07:00 | NUR ---
PT REPORT REC'D, PT CARE ASSUMED. PT RESTING WITH EYES CLOSED. PT C/O BACK PAIN RATED 10/10, REPOSIITONED PT TO RIGHT SIDE, PROPPED WITH PILLOWS, INSTRUCTED PT ON TAR BOILER PUMP. PT VERBALIZED UNDERSTANDING STATED "I TRY NOT TO USE IT TOO MUCH, IT MAKES ME NAUSEOUS" INFORMED PT THAT WE CAN GIVE HIM SOME ZOFRAN OR REGLAN TO COVER NAUSEOUSNESS. RIGHT JUGULAR SWAN GANZE, LOCKED IN PLACE, APPROX 67CM, DRESSING CDI, FLUIDS INFUSING, SEE FLOW SHEET. LEFT SUBCLAVIAN CVL WITH NITROGLYCERIN INFUSING, DRESSING CDI. RIGHT RADIAL A-LINE, ZEROED, EXTREMITY PINK AND WARM, WRIST PROTECTOR IN PLACE. MIDSTERNAL INSICION, DRESSING CDI, SUBSTERNAL CT SITE X3, TPM WIRES SECURED TO CHEST. DRESSING CDI. RIGHT LEG HARVEST SITES, TESS DRAIN X2 BLOODY DRAINAGE, COMPRESSED, DRESSING CDI. DELAROSA CATHETER FREE OF KINKS WITH CLEAR YELLOW URINE RETURN TO GRAVITY. SCD'S ANALI'S, SHIFT ASSESSMENT COMPLETED, SEE FLOW SHEET. ROOM FREE OF CLUTTTER, CALL LIGHT IN REACH. PT 1:1, WILL CONTINUE TO MONITOR PT.
--- NOTE | 2017-02-21 07:41 | CN ---
PATIENT NAME:AKI MOSS MEDICAL RECORD: [id number] : 51 LOCATION:[id number] ADMIT DATE: 02/16/17 ACCOUNT: [id number] CONSULTING PHYSICIAN: VAHID LATIF DO REFERRING PHYSICIAN: ARLETH FARLEY MD DATE OF CONSULTATION: 02/17/2017 Consultation note HISTORY OF PRESENT ILLNESS: A 61-year-old male admitted for unstable angina. Consult for medical management of hypertension and insomnia. PAST MEDICAL HISTORY: Significant for hypertension, tjwd-hi-dirqlnrr aortic stenosis. CURRENT MEDICATIONS: Lisinopril 10 mg b.i.d., trazodone 50 mg q.h.s. p.r.n. insomnia. ALLERGIES: REPORTED IODINE. FAMILY HISTORY: Significant for father with severe vascular disease, carotid, abdominal, and cardiac. REVIEW OF SYSTEMS: Significant for chest pressure, tightness, decreased exercise capacity for the past week, worse with exertion, relieved with rest. REVIEW OF SYSTEMS: HEENT: No cephalgia, visual changes, tinnitus, epistaxis or dysphagia. CARDIOVASCULAR: As above. PULMONARY: Denies hemoptysis, denies night sweats. GASTROINTESTINAL: Denies hematemesis, hematochezia or melena. GENITOURINARY: Denies dysuria, denies change in frequency. MUSCULOSKELETAL: No acute changes. ENDOCRINE: Denies polyuria, polydipsia, or polyphagia. PHYSICAL EXAMINATION: VITAL SIGNS: Temperature 98.4, blood pressure 149/77, heart rate 80, respirations 18, O2 sats 95% on room air. GENERAL: Alert, oriented, presently comfortable. HEENT: Normocephalic, atraumatic. Eyes: Pupils equal, round, reactive to light and accommodation. Extraocular muscles intact. Conjunctivae not injected. Ears: Canals patent, TMs are intact. Nose: Nares patent without drainage. Throat: No erythema, no exudates. NECK: Supple. No lymphadenopathy, no JVD. HEART: Regular rate and rhythm. No S3 or S4, no rub. LUNGS: Clear to auscultation bilaterally. Breathing is nonlabored. ABDOMEN: Soft and nontender. Bowel sounds all 4 quadrants. EXTREMITIES: Present times 4, no edema. NEUROLOGIC: Intact. SKIN: Warm, dry. No rash. LABORATORY DATA: ABG shows a pH of 7.407, pCO2 of 37.6, pO2 of 80. CBC: White count 9.9, hemoglobin 14.3, hematocrit 40.6, platelets 212. Chemistry shows a sodium of 140, potassium 4.0, chloride 104, bicarbonate 27, BUN 15, creatinine 1.1. Heart cath report reviewed showing multivessel disease. EKG showed sinus CONSULT REPORT [id number] AKI MOSS rhythm, rate of 69. No acute changes. ASSESSMENT AND PLAN: 1. A multivessel disease. The patient scheduled for bypass surgery. 2. Hypertension. Resume home medications. 3. Insomnia medications as ordered. Supportive care. TRANSINT:[id number] Voice Confirmation ID: [id number] DOCUMENT ID: [id number] VAHID LATIF DO at 0741 CC: [id number] DICTATION DATE: 02/17/171803 SANDING MACHINE TENDER: 02/17/172106 ADM IN [facility] [address] [place] [address]
--- NOTE | 2017-02-21 08:00 | NUR ---
DR. PRINCE AT THE BEDSIDE, ALL QUESTIONS ANSWERED, VSS, DECREASED PLAMALYTE FROM 100ML/HR TO 30ML/HR PER ORDER. WILL CONTINUE TO MONITOR PT.
[2017-02-21 08:19] LABS: HEPATITIS C ANTIBODY <0.1 (0.0-0.9)
--- NOTE | 2017-02-21 08:20 | NUR ---
DR. LATIF AT THE BEDSIDE, ALL QUESTIONS ANSWERED, VSS, WILL CONTINUE TO MONITOR PT.
--- NOTE | 2017-02-21 11:00 | NUR ---
PT RESTING WITH EYES CLOSED, PT CONTROLLING PAIN WITH STOCK CONTROLLER PUMP, REPOSITIONED PT TO LEFT SIDE, PROPPED WITH PILLOWS. REASSESSMENT COMPLETED, SEE FLOW SHEET. ROOM FREE OF CLUTTER, CALL LIGHT IN REACH, WILL CONTINUE TO MONITOR PT.
--- NOTE | 2017-02-21 12:04 | NUR ---
PT FAMILY AT THE BEDSIDE, ALL QUESTIONS ANSWERED, VSS, WILL CONTINUE TO MONITOR PT.
--- NOTE | 2017-02-21 14:14 | NUR ---
REPOSITIONED PT, PROPPED WITH PILLOWS, VSS, WILL CONTINUE TO MONITOR PT.
--- NOTE | 2017-02-21 14:38 | EC ---
PATIENT:AKI MOSS DATE OF SERVICE: 02/16/17 SEX: M MEDICAL RECORD: [id number] DATE OF : [birth year] LOCATION:[place] [address] AGE OF PATIENT: 62 ADMISSION DATE: 02/16/17 REFERRING PHYSICIAN: INTERPRETING PHYSICIAN: CAMERON MIKE MD ECHOCARDIOGRAM REPORT ECHO CHARGES 4 ECHO COMPLETE CLINICAL DIAGNOSIS: CHEST PAIN/CAD ASSESS EF POST CATH PRE-CABG ECHOCARDIOGRAPHIC MEASUREMENTS (adult normal given) AC root (d.<3.7cm) 3.5 LV Septum d (<1.2 cm> 1.5 Valve Excursion 1.9 LV Septum (systole) 1.6 Left Atria (s.<4.0cm> 3.5 LVPW d(<1.2cm) 1.6 RV (d.<2.3cm) 3.7 LVPW (sytole) 1.8 LV diastole(<5.6CM) 5.7 MV E-F(>70mm/sec) LV systole 4.2 LVOT Diameter 2.0 MV exc.(>10mm) 1.9 Est.ejection fraction (50-75%) Pericardial Effusion N DOPPLER: LVIT A 89.0 E 66.0 LA RVSP 26 LVOT 130 AOP1/2T Asc. Ao 158 RVOT 87 RA PA 136 AV Gradient Peak 9.95 AV Mean 5.37 AV Area 3.4 MV Gradient Peak 4.82 MV Mean 2.22 MV Area COMMENTS: SURESH PATIENT Septic Tank Installer: Meera YUSUF Integrated Circuit Layout Designer:Hebert Simons TAPE# PACS DATE OF SERVICE: 02/17/2017 Echocardiogram FINDINGS: 1. Left ventricular chamber size is upper limits of normal, left ventricular systolic function is normal. Overall ejection fraction estimated at 65%. 2. Left atrium is within normal limits at 3.5 cm. Right atrium and right ventricular chamber sizes are mildly dilated. 3. Valvular structures have normal structure and motion. ECHOCARDIOGRAM REPORT [id number] AKI MOSS 4. Doppler interrogation reveals mild aortic insufficiency, mild tricuspid regurgitation, no other valvular insufficiency or stenosis and pulmonary systolic pressure is normal estimated at 26 mmHg. 5. No evidence of pericardial effusion or left ventricular thrombus. TRANSINT:[id number] Voice Confirmation ID: [id number] DOCUMENT ID: [id number] CAMERON MIKE MD at 1438 CC: [id number] DICTATION DATE: 02/20/17 1058 MANUFACTURE SPECIALIST: 02/20/17 1326 ADM IN [place] [id number] [place] [id number]
--- NOTE | 2017-02-21 15:00 | NUR ---
PT RESTING WITH EYES CLOSED, PAIN CONTROLED WITH DRIVER SUPERVISOR PUMP. REASSESSMENT COMPLETED,SEE FLOW SHEET. ROOM FREE OF CLUTTER, CALL LIGHT IN REACH. WILL CONTINUE TO MONITOR PT.
--- NOTE | 2017-02-21 15:07 | NUR ---
PT'S FAMILY AT THE BEDSIDE, ALL QUESTIONS ANSWERED, VSS. WILL CONTINUE TO MONITOR PT.
--- NOTE | 2017-02-21 17:02 | NUR ---
PT RESTING WITH EYES CLOSED, VSS, WILL CONTINUE TO MONITOR PT.
--- NOTE | 2017-02-21 18:11 | NUR ---
PTS AT THE BEDSIDE, ALL QUESTIONS ANSWERED, VSS, WILL CONTINUE TO MONIOTR PT.
--- NOTE | 2017-02-21 19:20 | NUR ---
REC'D PT RESTING IN BED ON O2 @ 3LITERS VIA NC, ORIENTED X 4, RIJ JENNAN GABINO DRSG CDI WITH MANNIFOLD TO PROX INFUSION WITH PLASMALYTE @ 30CC/HR, 3 PRONG EXTENSION TO CORDIS WITH INSULIN @ 1UNIT/HR, BURETROL @ 10CC/HR AND MORPHINE CLOTH PRINTING BACK TENDER 1MG Q10MIN, LDLSCL DRSG CDI WITH NITROGLYCERIN INFUSING @ 20CC/HR, MIDSTERNAL DRSG CDI, SUBSTERNAL DRSG WITH EXTERNAL P/M WIRES TAPED SECURELY, EXTERNAL P/M VVI 60 VMA 10, CM-SR @ 96, MEDIASTINAL CT'S X 2 AND PLEURAL X 1 WITH SEROSANGUINOUS DRAINAGE FROM BOTH, CT'S TO 20CM H2O SUCTION, NO AIR LEAK NOTED, RIGHT RADIAL ZACKERY WITH FLEXION BOARD IN USE LEVELED AND ZEROED WITH RETURN OF APPROPRIATE WAVEFORM, ABD SOFT, BS HYPOACTIVE, CRITICORE DELAROSA PATENT DRAINING CLEAR YELLOW URINE, RIGHT LEG WITH COBAN CDI, TESS DRAINS X 2 COMPRESSED WITH SCANT SANGUINOUS DRAINAGE NOTED, ANALI AND SCD TO LEFT LOWER LEG, PPP, SR UP X 2, CLOTH PRINTING BACK TENDER BUTTON IN REACH, PT DENIES PAIN OR OTHER NEEDS AT THIS TIME.
--- NOTE | 2017-02-21 19:40 | NUR ---
PT REQUESTING HERNAN BECERRA PROVIDED ON REQUEST
--- NOTE | 2017-02-21 20:40 | NUR ---
EVENING MEDS GIVEN WITH SIPS OF WATER, WARM BACK REHEATED AND APPLIED TO LEFT SIDE OF BACK PER PT REQUEST, BP ELEVATED, TITRATING NITRO FOR EFFECT.
--- NOTE | 2017-02-21 21:00 | NUR ---
SON AT BS, UPDATE GIVEN AND QUESTIONS ANSWERED, PT DENIES NEEDS.
--- NOTE | 2017-02-21 21:04 | NUR ---
BP TRENDING UP DESPITE TITIRATING NITROGLYCERIN, CLEVIPREX BEGUN AT 1MG/HR WILL MONITOR CLOSELY FOR CHANGES.
--- NOTE | 2017-02-21 21:10 | NUR ---
PT COMPLAINS OF SLIGHT NAUSEA AFTER EVENING MEDS, 10MG REGLAN GIVEN SLOW IVP.
--- NOTE | 2017-02-21 21:50 | NUR ---
PT'S O2 SAT DECREASED TO 85%, PT REPOSITIONED UP IN BED, IS DONE WITH PATIENT, PT PULLING 1000 AT THIS TIME, NONPRODUCTIVE COUGH NOTED, PT UNCOMFORTABLE IN BED, REPOSITIONED UP AND TO LEFT SIDE, CONTINUING TO TITRATE MEDS FOR ELEVATED BP.
--- NOTE | 2017-02-21 22:00 | NUR ---
ATTEMPTED TO BEGIN CLEVIPREX TO BALANCE BP AND KEEP LESS THAN 150, SHORTLY AFTER STARTING, O2 SAT DECREASED AND BP CONTINUED TO ELEVATE, CLEVIPREX WEANED OFF AND NITROGLYCERIN RESUMED.
--- NOTE | 2017-02-21 22:30 | NUR ---
PT RESTING IN BED EYES CLOSED, RESP EVEN AND UNLABORED, O2 SAT 93% AND BP 128/49, NITRO INFUSING @ 25CC/HR, WILL MONITOR CLOSELY FOR CHANGES.
--- NOTE | 2017-02-21 23:00 | NUR ---
REASSESSMENT COMPLETED, PT RESTING EYES CLOSED, RESP EVEN AND UNLABORED, O2 SAT 95%, MINIMAL AMOUNT OF DRAINAGE FROM CHEST TUBES, DRSGS REMAIN CDI, SR UP X 2, 1:[address]WAY
[2017-02-22] VITALS (76 sets, daily range): BP systolic 101–149; BP diastolic 44–82
--- NOTE | 2017-02-22 00:45 | NUR ---
PT AWAKE, COMPLAINS OF GENERALIZED DISCOMFORT, TORADOL GIVEN FOR COMPLAINTS OF NECK AND BACK PAIN, DEEP BREATHING AND COUGHING DONE, PT CONTINUES TO PULL 1000 ON IS WITH ENCOURAGEMENT, NONPRODUCTIVE COUGH NOTED.
--- NOTE | 2017-02-22 01:40 | NUR ---
FSBS 129, INSULIN REMAINS AT 3 UNITS/HR WILL RECHECK IN 2HOURS, PT DOING RANGE OF MOTION EXERCISES WITH ARMS, STATES " I AM SO SWOLLEN", PT ASKED CURRENT WEIGHT CONCERNED THAT HE HAS GAINED 15 POUNDS IN FLUID, PT STATES " I CAN'T COUGH WITH ALL THIS FLUID I THINK I NEED LASIX", BBS AUSCULTATED LUNG AYALA REMAIN CLEAR, ARMS ELEVATED ON PILLOWS, EXPLAINED TO PT THAT LATER TODAY MOST LIKELY LINES WOULD BE REMOVED PER MD AND THEN PT WOULD BE GETTING OOB TO CHAIR AND UP WALKING WITH PT, STATES "I HOPE SO", O2 SAT 96%.
--- NOTE | 2017-02-22 03:41 | NUR ---
FSBS 111, INSULIN DECREASED TO 1 UNIT/HR, PT AWAKE, VOICES CONCERNS ABOUT ABOUT SWOLLEN HANDS, STATES "I JUST DON'T KNOW IF I WILL MAKE IT UNTIL MORNING" O2 SAT 97%, PT DENIES SOB, PT STATES " MY SKIN IS STRETCHING TO TIGHT AND ITCHING LIKE IT HAS CLEAR BLISTERS", LIGHT TURNED ON AND CHEST AND ARMS EXAMINED, NO REDNESS OR BLISTERS NOTED, PT ANXIOUS, ATTEMPTED TO REASSURE AND CALM PT, LDLSCL DRSG CHANGED PER PROTOCOL, RIGHT LEG COBAN REMOVED AND LEG CLEANED WITH CHOLRHEXIDINE WIPES, 5 INCISIONS WITH KARTIK WELL APPROXIMATED AND 2 TESS DRAINS, SITES CLEANED WITH BETADINE, BETADINE OINTMENT APPLIED AND SITES COVERED WITH 4X4'S AND MEDIPORE TAPE, PT TOLERATED WELL, RT AT BS FOR BREATHING TREATMENT.
--- NOTE | 2017-02-22 03:50 | NUR ---
RADIOLOGY AT BS FOR AM CXR
--- NOTE | 2017-02-22 04:05 | NUR ---
COMPLETE BATH AND LINEN CHANGE GIVEN, PT TOLERATED WELL, REPOSITIONED UP IN BED FOR COMFORT, PT CALMER AT THIS TIME, STATES " THE DIVERSION HELPED", BP ELEVATED, NITROGLYCERIN INCREASED TO 30CC/HR, SR UP X 2, CALL LIGHT AND GUEST SERVICES MANAGER IN REACH.
--- NOTE | 2017-02-22 05:40 | NUR ---
AM LAB DRAWN FROM CV AND SENT TO LAB, PT RESTING QUIETLY WATCHING TV, DENIES PAIN OR NEEDS.
[2017-02-22 05:57] LABS: HEMATOCRIT 22.1 % (42.0-54.0); HEMOGLOBIN 7.6 g/dL (13.5-17.5); MCH 30.4 pg (26.0-34.0); MCHC 34.4 g/dL (31.0-37.0); MCV 88.4 fL (80.0-100.0); MEAN PLATELET VOLUME 8.3 fL (7.4-10.4); PLATELET COUNT 94 10x3/uL (130-400); RDW 13.3 % (11.5-14.5); WBC 14.2 10x3/uL (4.8-10.8)
--- NOTE | 2017-02-22 06:00 | NUR ---
NO VISITORS IN AT THIS TIME, PT COMPLAINS OF LEFT HEEL BEING SORE, NO REDNESS NOTED, HEELS BRIDGED FOR COMFORT, PT DENIES FURTHER NEEDS.
[2017-02-22 06:11] LABS: PLATELET ESTIMATE DECREASED
[2017-02-22 06:56] LABS: ALBUMIN 2.9 g/dL (3.4-5.0); ALKALINE PHOSPHATASE 57 U/L (46-116); CALCIUM 7.7 mg/dL (8.5-10.1); CARBON DIOXIDE 28.7 mmol/L (21.0-32.0); CHLORIDE - SERUM 101 mmol/L (98-107); GLUCOSE 111 mg/dL (74-106); POTASSIUM - SERUM 3.9 mmol/L (3.5-5.1); PROTEIN - SERUM 5.5 g/dL (6.4-8.2); SODIUM 136 mmol/L (136-145); eGFR NON AFRICAN AMERICAN 80 mL/min (90-120)
[2017-02-22 06:58] LABS: ALT (SGPT) 26 U/L (10-68); CALC OSMOLALITY 276 mosm/kg (275-300); UREA NITROGEN 25 mg/dL (7-18)
--- NOTE | 2017-02-22 07:30 | NUR ---
REPORT RECIEVED FROM SENIOR MASTER SCHEDULER NURSE. PT RESTING IN BED QUIETLY. ASSESSMENT COMPLETE PER FLOWSHEET. CALL LIGHT IN REACH. WILL CONT 1:1 CARE.
--- NOTE | 2017-02-22 08:15 | NUR ---
CLEVIPREX STARTED. MAXED OUT ON NITRO GTT.
--- NOTE | 2017-02-22 08:30 | NUR ---
NITRO GTT WEANED OFF AND CLEVIPREX GTT INFUSING AT 20MG/HR. O2 SATURATIONS TRENDING DOWN TO 88%. RT NOTIFIED TO DRAW GASES AND GRAB AN OXYMIZER CANNULA. PT RECIEVING O2 VIA NC AT 6L. PT INSTRUCTED TO COUGH AND DEEP BREATH. NO CHANGE NOTED TO OXYGEN SATURATION. CHARGE NURSE, CLARIBEL AND DR. PRINCE'S NURSE, SHAINA NOTIFIED.
--- NOTE | 2017-02-22 08:40 | NUR ---
MINOO MERRITT AND CHARGE NURSE, CLARIBEL AT BEDSIDE PRESENTED ABG RESULTS PT PLACED ON AN OXYMIZER AT 13L. O2 SATURATION'S REMAIN 88-89%. PT INSTRUCTED TO COUGH AND DEEP BREATH. O2 SATURATIONS REAMAINED THE SAME.
--- NOTE | 2017-02-22 08:42 | OP ---
PATIENT NAME: AKI MOSS MEDICAL RECORD: [id number] :51 LOCATION:[facility] ADMISSION DATE:02/16/17 SURGEON: ARLETH FARLEY MD DATE OF OPERATION: 02/17/2017 PROCEDURE: Left heart catheterization, selective coronary angiography, right femoral approach. CATHETERS: A 5-Honduran sheath, 5/4 left and right Niall, 5/4 pig. The procedure was well tolerated and the patient returned to the zeng. Sheath was removed. TR band was placed. FINDINGS: Left ventriculography in the 30-degree BAUTISTA view: Normal wall motion and normal systolic function. CORONARY ANATOMY: Left main: Left main is free of disease. LAD: Has 2 sequential stenosis approximately 80%, more distal, more diffuse with good target distally. CIRCUMFLEX: Circumflex has a large OM1, now with about 80% proximal stenosis, good target distally. The true circumflex itself has about 80% stenosis before leaving the AV groove. RIGHT CORONARY ARTERY: Has 80% stenosis at the takeoff PDA. IMPRESSION: Multivessel coronary artery disease. Given the location of the anatomy, probably best served via coronary bypass grafting. Dr. Mason was consulted for that purpose. TRANSINT:[id number] Voice Confirmation ID: [id number] DOCUMENT ID: [id number] ARLETH FARLEY MD at 0842 CC: [id number] DICTATION DATE: 02/17/17 1233 THERMAL INTELLIGENCE ANALYST: 02/17/17 1449 [place] [address]
--- NOTE | 2017-02-22 08:43 | CN ---
PATIENT NAME:AKI MOSS MEDICAL RECORD: [id number] : 51 LOCATION:[id number] ADMIT DATE: 02/16/17 ACCOUNT: [id number] CONSULTING PHYSICIAN: ARLETH FARLEY MD REFERRING PHYSICIAN: ARLETH FARLEY MD DATE OF CONSULTATION: 02/17/2017 HISTORY OF PRESENT ILLNESS: A 61-year-old gentleman with a history of aortic stenosis. This is ugch-vy-ylwxpzfz in nature. He has a history of tick fever, type unspecified, the last summer. He has been having intermittent chest pain with exertion fairly classic by his report, chest tightness, pressure. Enzymes currently negative. ECG without acute change. We were asked to see him concerning his cardiovascular status. PAST MEDICAL HISTORY: Includes: 1. History of hypertension. 2. Aortic stenosis. 3. Tick fever. ALLERGIES: IODINE. SOCIAL HISTORY: Lives here in [place], nonsmoker. He takes care of his ADLs. REVIEW OF SYSTEMS: The patient reports easy bruising but reports no swollen glands. The patient reports no fever, no night sweats, no significant weight gain, no significant weight loss. No significant exercise tolerance. The patient reports no dry eyes, no irritation, no vision change. Patient reports no difficulty hearing and no ear pain. Patient reports no frequent nose bleeds or nose and sinus problems. Patient reports on arm pain on exertion. No shortness of breath while lying down. No history of heart murmur. Patient reports no cough, no wheezing or coughing up blood. Patient reports no abdominal pain, no vomiting. Normal appetite. No diarrhea and not vomiting blood. No nausea and no constipation. Patient reports no incontinence. No difficulty urinating. No hematuria. No increased frequency. Patient reports no muscle aches. No weakness, no arthralgias, no back pain. No swelling of the extremities. Patient reports no abnormal mole, no jaundice, no rashes. Reports no loss of consciousness. No weakness and no numbness. No seizures, dizziness, or headaches. The patient reports no depression, no sleep disturbance, feeling safe in a relationship and no alcohol abuse. Patient reports on fatigue. Reports no runny nose or sinus pressure. No itching, no hives, and no frequent sneezing. MEDICATIONS: Lisinopril 10 b.i.d., trazodone 50 q.h.s. PHYSICAL EXAMINATION GENERAL: Appears stated age. VITAL SIGNS: 149/77, pulse of 80 and regular. HEENT: Normocephalic, atraumatic. NECK: No JVD or bruit. HEART: Regular. II/ systolic ejection murmur. LUNGS: Good air excursion. ABDOMEN: Soft, nontender. EXTREMITIES: Pulse 2+ with no edema. CONSULT REPORT [id number] AKI MOSS DIAGNOSTIC DATA: ECG without acute change. IMPRESSION: Exertional angina. PLAN: For diagnostic angiography, intervention based on above. TRANSINT:[id number] Voice Confirmation ID: [id number] DOCUMENT ID: [id number] ARLETH FARLEY MD at 0843 CC: [id number] DICTATION DATE: 02/17/17 0839 PINKING MACHINE OPERATOR: 02/17/17 1144 ADM IN [place] [id number] [place] [address]
--- NOTE | 2017-02-22 09:15 | NUR ---
NIPRIDE GTT ORDERED TO INFUSE INSTEAD OF CLEVIPREX. NIPRIDE GTT STARTED AND PT RESPONDING WELL. BP SLOWLY DECREASING TO DESIRED READING. O2 SATURATIONS IMPROVING AT 94-96% ON THE 13L OXYMIZER.
--- NOTE | 2017-02-22 09:30 | NUR ---
Nutrition follow-up: Pt s/p CABG Diet advanced to regular Labs reviewed Wt: 181#->pt is retaining some fluid Will continue to provide food choices and honor food preferences. RDN following.
--- NOTE | 2017-02-22 09:30 | NUR ---
ABG'S DRAWN AND PO2 IMPROVING.
--- NOTE | 2017-02-22 10:15 | NUR ---
NIPRIDE GTT BEING TITRATED PER A-LINE MEASUREMENTS. OXYMIZER WEANED DOWN TO 9L. WILL CONT TO TITRATE NEEDED.
[2017-02-22 11:42] LABS: HEMATOCRIT 21.7 % (42.0-54.0)
--- NOTE | 2017-02-22 11:45 | NUR ---
DR. PRINCE AT BEDSIDE. INSRUCTED TO GET THINGS READY TO PULL LINES.
[2017-02-22 11:46] LABS: HEMOGLOBIN 7.4 g/dL (13.5-17.5)
--- NOTE | 2017-02-22 11:58 | NUR ---
Patient Name: AKI MOSS Admission Status: ER Accout number: [id number] Admission Date: 02-16-2017 : 1955 Admission Diagnosis:ANGINA PECTORIS, UNSPECIFIED Attending: ELADIA Current LOS: 6 Anticipated DC Date: UNSURE Planned Disposition: UNSURE Primary Insurance: [employer] Wright OUT OF STATE Discharge Planning Comments: PATIENT WITH LOW SPO2 AND NURSES AT BEDSIDE. PT UNABLE TO PARTICIPATE IN DC PLANNING AT THIS TIME. CM WILL ATTEMPT TO SPEAK WITH PATIENT WHEN MORE STABLE AND ABLE TO PARTICIPATE. Paperhanger Pipe: Tamar Jorge RN, CM
--- NOTE | 2017-02-22 13:00 | NUR ---
ALL LINES PULLED WITH NO ISSUES NOTED. NEW DRESSING APPLIED TO OLD CHEST TUBE SITES AND RIGHT LEG POST REMOVAL OF CHEST TUBES AND TESS DRAINS. SWAN GABINO D/C'D DRESSING PLACED OVER R IJ. RIGHT A-LINE REMOVED. CATH TIP INTACT. DRESSING PLACED OVER SITE. F/C REMOVED WITH 9CC REMOVED FROM BALLOON. TIP INTACT.
--- NOTE | 2017-02-22 15:00 | NUR ---
NIPRIDE TITRATED OFF. WILL CONTINUE TO ASSESS BP.
--- NOTE | 2017-02-22 15:15 | NUR ---
FIRST UNIT OF BLOOD INFUSING. WILL MONITOR FOR ANY CHANGES THROUGHOUT TRANSFUSION.
--- NOTE | 2017-02-22 16:45 | NUR ---
UNIT OF PRBC INFUSED. NO TRANSFUSION REACTION NOTED. VSS REMAINED STABLE.
--- NOTE | 2017-02-22 18:00 | NUR ---
FAMILY AT BEDSIDE. UDATE PROVIDED.
--- NOTE | 2017-02-22 19:20 | NUR ---
REPORT REC'D AND CARE ASSUMED, PT ON O2 @ 4LITERS VIA NC, AWAKE, ALERT, ORIENTED X 4, RIGHT NECK DRSG FROM PREVIOUS SWAN GABINO CDI, LDLSCL DRSG CDI WITH PLASMALYTE @ 30CC/HR AND MORPHINE SYSTEMS INTEGRATION ENGINEER 1MG Q1OMIN WITH 24MG Q4HR LOCKOUT, MIDSTERNAL DRSG CDI, SUBSTERNAL DRSG TO PREVIOUS CT SITES AND EXTERNAL P/M WIRES CDI, EXTERNAL P/M VVI 60 VMA 10, CM-SR, RIGHT LEG DRSGS CDI, PPP, BILAT TEDS AND SCDS INTACT AND ON, PT DENIES NEEDS, SR UP X 2, CALL LIGHT AND SYSTEMS INTEGRATION ENGINEER BUTTON IN REACH.
--- NOTE | 2017-02-22 20:15 | NUR ---
2ND UNIT PRBC'S BEGUN AT THIS TIME, BP 108/79, PT RESTING IN BED EYES CLOSED, RESP EVEN AND UNLABORED.
--- NOTE | 2017-02-22 21:00 | NUR ---
EVENING MEDS GIVEN, NO VISITORS IN AT THIS TIME, O2 SAT 100% , OXYGEN WEANED TO 3LITERS AT THIS TIME.
--- NOTE | 2017-02-22 22:00 | NUR ---
PRBC COMPLETED WITHOUT S/S OF REACTION, PT RESTING IN BED EYES CLOSED, RESP EVEN AND UNLABORED VSS.
--- NOTE | 2017-02-22 23:30 | NUR ---
REASSESSMENT COMPLETED PT DOZING AT INTERVALS, BP STABLE, O2 WEANED TO 3LITERS O2 SAT 100%, WILL CONT TO MONITOR CLOSELY FOR CHANGES.
[2017-02-23] VITALS (25 sets, daily range): BP systolic 110–146; BP diastolic 61–81
--- NOTE | 2017-02-23 01:15 | NUR ---
PT AWAKE COMPLAINS OF ABDOMINAL PAIN, PT PLACED ON BEDPAIN PER REQUEST, CALL LIGHT IN REACH.
--- NOTE | 2017-02-23 01:40 | NUR ---
PT REMOVED SELF FROM BEDPAN, STATES " I ONLY PASSED GAS ", URINAL EMPTIED OF 100CC CLEAR YELLOW URINE, PT REPOSITIONED UP IN BED FOR COMFORT, DENIES FURTHER NEEDS.
--- NOTE | 2017-02-23 03:15 | NUR ---
REASSESSMENT COMPLETED, NO CHANGES FROM PREVIOUS ASSESSMENT, RT AT BS FOR BREATHING TX AND EKG.
--- NOTE | 2017-02-23 04:50 | NUR ---
PT TAKEN TO RADIOLOGY FOR PA AND LATERAL.
--- NOTE | 2017-02-23 05:00 | NUR ---
RETURNED TO ROOM AND ASSISTED PT OVER TO RECLNER, IVF'S RESUMED, PT'S GAIT STEADY, DENIES DIZZINESS OR NAUSEA, CALL LIGHT AND ADMINISTRATIVE RECEPTIONIST IN REACH.
--- NOTE | 2017-02-23 05:15 | NUR ---
PT ASSISTED UP TO BSC, CALL LIGHT IN REACH.
--- NOTE | 2017-02-23 05:35 | NUR ---
PT ASSISTED BACK TO RECLINER, PT ASSISTED TO RECLINE AND PILLOWS PROVIDED FOR COMFORT, WARM BLANKET PROVIDED ON REQUEST, PT VOIDED 200CC YELLOW URINE, NO STOOL NOTED, PT DENIES FURTHER NEEDS, CALL LIGHT AND EXCEPTIONAL NEEDS TEACHER IN REACH.
[2017-02-23 06:16] LABS: MCH 29.9 pg (26.0-34.0); MCHC 33.7 g/dL (31.0-37.0); MCV 88.7 fL (80.0-100.0); MEAN PLATELET VOLUME 8.8 fL (7.4-10.4); RDW 13.8 % (11.5-14.5); WBC 13.2 10x3/uL (4.8-10.8)
[2017-02-23 06:17] LABS: HEMATOCRIT 27.6 % (42.0-54.0); HEMOGLOBIN 9.3 g/dL (13.5-17.5); RBC 3.11 10x6/uL (4.20-6.10)
[2017-02-23 06:43] LABS: ALBUMIN 3.1 g/dL (3.4-5.0); ALKALINE PHOSPHATASE 97 U/L (46-116); ALT (SGPT) 27 U/L (10-68); BILIRUBIN - TOTAL 0.69 mg/dL (0.2-1.3); CALC OSMOLALITY 278 mosm/kg (275-300); CARBON DIOXIDE 28.9 mmol/L (21.0-32.0); CHLORIDE - SERUM 99 mmol/L (98-107); CREATININE - SERUM 0.9 mg/dL (0.6-1.3); GLUCOSE 116 mg/dL (74-106); PROTEIN - SERUM 6.4 g/dL (6.4-8.2); SODIUM 136 mmol/L (136-145); UREA NITROGEN 28 mg/dL (7-18); eGFR NON AFRICAN AMERICAN 90 mL/min (90-120)
--- NOTE | 2017-02-23 07:30 | NUR ---
ASSESSMENT COMPLETE. AAO X4. PAIN CONTROLLED BY LOOP PULLER. S1S2 NOTED, RADIAL AND PEDAL PULSES PALP. NSR. TPM SETTINGS VVI 60, VMA 10, SENSING. 3L NC, RLL, LLL DIMINISHED. HYPOACTIVE BOWEL SOUNDS X4. PT REPORTS PASSING GAS. GENERALIZED WEAKNESS. NO EDEMA NOTED. LT SC CVL, SEE IV FLOWSHEET. FOR OTHER ASSESSMENT FINDINGS SEE FLOWSHEET. SCD AND ANALI SOTELO ON.
--- NOTE | 2017-02-23 08:41 | TEE ---
PATIENT:AKI MOSS MEDICAL RECORD: [id number] LOCATION:[place] [address] AGE OF PATIENT: 62 ADMISSION DATE: 02/16/17 SEX: M REFERRING PHYSICIAN: INTERPRETING PHYSICIAN: CAMERON MIKE MD TRANSESOPHAGEAL ECHOCARDIOGRAM ELVIRA CHARGE Y INDICATIONS: CABG PREMEDICATIONS: PATIENT'S RESPONSE PROCEDURE DOPPLER MEASUREMENTS: LVIT LA PA 136 RA LVOT 130 RVOT 87 Asc. Ao 158 AV Gradient Peak 9.95 AV Mean 5.37 AV Area 3.4 MV Gradient Peak 4.82 MV Mean 2.22 MV Area INTERPRETATION: Doppler: 2-D: EF 60 % COLOR FLOW DOPPLER MILD AI, TRACES OF MR/TR/PI NORMAL SALINE STUDY: MISCELLANOUS: DIAGNOSIS: PLAN: Paper Goods Machine Operator:Hebert Simons Director Hedis: Meera YUSUF COMMENTS: SURESH PATIENT DATE OF SERVICE: 02/20/2017 Intraoperative evaluation of valvular structures during bypass surgery. FINDINGS: 1. Left ventricular chamber size is within normal limits. Left ventricular systolic function is normal. Overall ejection fraction estimated at 60%. 2. Left atrium, right atrium, and right ventricle chamber sizes are within normal limits. TRANSESOPHAGEAL ECHOCARDIOGRAM REPORT [id number] AKI MOSS 3. Valvular structures have normal structure and motion. 4. Doppler interrogation reveals only mild aortic insufficiency. No other valvular insufficiency or stenosis. 5. No evidence of pericardial effusion or left ventricular thrombus. TRANSINT:[id number] Voice Confirmation ID: [id number] DOCUMENT ID: [id number] at 0841 CC: [id number] DICTATION DATE: 02/21/17 1429 SPECIALIST PHYSICIAN: 02/22/17 0250 [place] [address]
--- NOTE | 2017-02-23 09:00 | NUR ---
NO FAMILY AT BEDSIDE. MEDS GIVEN WITHOUT DIFFICULTY
--- NOTE | 2017-02-23 10:00 | NUR ---
HAD PATIENT VOID PRIOR TO BLADDER SCAN, SCAN SHOWED PATIENT HAD 900ML RETENTION. PAGED SHAINA WITH DR. PRINCE. SAID TO CALL DR. RIVAS
--- NOTE | 2017-02-23 10:15 | NUR ---
SPOKE WITH DR. RIVAS. SAID TO PLACE DELAROSA. CALLED SHAINA, SAID THAT SYDNEY WOULD COME BY TO PLACE DELAROSA
--- NOTE | 2017-02-23 10:40 | NUR ---
SYDNEY AT BEDSIDE.
--- NOTE | 2017-02-23 11:30 | NUR ---
ASSESSMENT COMPLETE. MINIMAL CHANGES. DELAR[place]A PLACED BY LISE GRIMES. WILL CONTINUE TO MONITOR. MORPHINE [employer] MISSIONS SYSTEMS OFF. FLUIDS D/C.
--- NOTE | 2017-02-23 12:38 | NUR ---
VISITORS AT BEDSIDE. QUESTIONS ANSWERED
--- NOTE | 2017-02-23 14:05 | NUR ---
PT DENIES NEEDS AT THIS TIME.
--- NOTE | 2017-02-23 15:30 | NUR ---
REASSESSMENT COMPELTE. SEE FLOWSHEET FOR DETAILS.
--- NOTE | 2017-02-23 16:05 | NUR ---
PT C/O PAIN IN BACK AND INCISIONAL PAIN. PAIN MEDICATION TO FOLLOW
--- NOTE | 2017-02-23 16:59 | OP ---
PATIENT NAME: AKI MOSS MEDICAL RECORD: [id number] :51 LOCATION:[id number] ADMISSION DATE:02/16/17 SURGEON: RENZO MASON MD DATE OF OPERATION: 02/20/2017 SURGEON: Renzo Mason MD ANESTHESIA: General endotracheal, Dr. Plascencia. OPERATIONS PERFORMED: Aortocoronary artery bypass utilizing left internal thoracic, left anterior descending, reverse saphenous vein graft to the first diagonal, reverse saphenous vein graft to the right coronary artery and reverse saphenous vein graft to sequential first diagonal and sequential obtuse marginal 2 coronary artery. PREOPERATIVE DIAGNOSIS: Unstable angina. POSTOPERATIVE DIAGNOSIS: Unstable angina. INDICATION FOR OPERATION: Unstable angina. FINDINGS OF THE OPERATION: The greater saphenous vein from the right thigh was of excellent quality. The left internal thoracic was an excellent conduit. The target vessels were of good caliber and not diffusely diseased. ESTIMATED BLOOD LOSS: Cell Saver was used. DESCRIPTION OF PROCEDURE: After informed consent and adequate preoperative medication evaluation, the patient was brought to the operating room, placed on the table in the supine position. After induction of general endotracheal anesthesia and application of appropriate monitoring devices, the chest, neck, abdomen, and both legs were prepped and draped in a sterile field, utilizing Betadine scrub, alcohol, and Betadine solution. Betadine-impregnated drape was also used. Saphenous vein was harvested from the right leg through a small transverse incision. The leg was closed over drains utilizing 3-0 Vicryl and skin chrystal. A median sternotomy incision was used and dissection carried down the fascia. Hemostasis maintained with electrocautery. Sternum was divided. Innominate vein was identified and protected. Left internal thoracic was taken down and prepared for grafting. The patient was given a calculated dose of heparin, cannulated in the standard fashion utilizing 1 aortic, 1 two-stage cannula in the atrium and inferior vena cava. The patient was placed on cardiopulmonary bypass and cooled to 32 degrees centigrade. A cross clamp was placed just proximal to the aortic cannula and the patient was given cardioplegic solution through the aortic root. The patient was given a cold induction and cold maintenance. The patient was given cold intermittent cardioplegic solution throughout the procedure through the graft, through the root or a combination of both. The first vessel to be grafted was the distal right. It was grafted end-to-side utilizing a running 7-0 Prolene suture. Graft was measured back to the aorta and a proximal anastomosis fashioned utilizing running 6-0 Prolene suture. Next, the obtuse marginal 2 was grafted end-to-side utilizing a running 7-0 Prolene suture. The graft was then measured to the obtuse marginal 1 in a [id number] anastomosis fashion utilizing running 7-0 Prolene suture. The grafts were measured back to the aorta and a proximal anastomosis fashioned utilizing running 6-0 Prolene suture. Next, the first diagonal was grafted end-to-side utilizing a running 7-0 Prolene suture. The OPERATIVE REPORT [id number] AKI MOSS graft was measured back to the aorta and a proximal anastomosis fashioned utilizing running 6-0 Prolene suture. Next, left internal thoracic was brought through the hole in pericardium, sutured left anterior descending end-to-side utilizing a running 8-0 Prolene suture. Pedicle was attached to epicardium with 6-0 Prolene suture. All maneuvers to remove trapped air were performed. The patient was given warm cardioplegic reperfusion and controlled reperfusion. The patient was warmed to 32 degrees centigrade. Two atrial and 2 ventricular pacing wires were placed on the heart and brought through the epigastric area. The patient was weaned cardiopulmonary bypass. After being stable off bypass, he was given calculated dose of protamine to reverse the heparin. Hemostasis was achieved. A #40 right angle and #36 chest tubes were brought in through the epigastric area and placed in mediastinum. A separate left pleural tube was connected to underwater seal and suction. Chest was again irrigated. Instrument count and sponge count were correct times 2. Chest was closed in layers utilizing #7 wire on the sternum, #2 Vicryl on linea alba and pectoralis fascia. Subcutaneous tissue was approximated with 2-0 Vicryl and skin approximated with 3-0 subcuticular Vicryl. Sterile dressings were applied. The patient tolerated the procedure well and transferred to the ICU in stable condition. TRANSINT:[id number] Voice Confirmation ID: [id number] DOCUMENT ID: [id number] RENZO MASON MD at 1659 CC: [id number] DICTATION DATE: 02/20/17 1442 RIPENING ROOM HAND: 02/20/17 2223 ADM IN [facility] [address] [id number]
--- NOTE | 2017-02-23 17:00 | NUR ---
DR. PRINCE AT BEDSIDE. TOOK PATIENT HIS TRAY. DENIES OTHER NEEDS
--- NOTE | 2017-02-23 18:30 | NUR ---
NIGHT MEDS GIVEN, PT DENIES NEED, VSS.
--- NOTE | 2017-02-23 19:20 | NUR ---
SHIFT ASSESSMENT COMPLETE, AAOX4, S1S2 NOTED, PM SET @ VVI 60, SENSING. HR NS @ 89BPM. RR EVEN AND NONLABORED. MIDSTERNAL INCISION WITH DRESSING C/D/I. DELAROSA CATHETER DRAINING CLEAR YELLOW URINE TO GRAVITY. DRESSING ON RIGHT LEG FROM HARVEST, ALL DRESSINGS C/D/I. PERIPHERAL PULSES +2. LEFT SUBCLAVIAN CENTRAL LINE SALINE LOCKED, FLUSHED AT THIS TIME. SITE IS C/D/I. PATIENT UP IN CHAIR AT THIS TIME. CL IN REACH, VSS.
--- NOTE | 2017-02-23 19:30 | NUR ---
PATIENT MOVED TO BED, REPOSITIONED FOR COMFORT, CL IN REACH.
--- NOTE | 2017-02-23 19:30 | NUR ---
DR RIVAS AT BEDSIDE, ORDERS RECEIVED.
--- NOTE | 2017-02-23 20:30 | NUR ---
NIGHT MEDS GIVEN, VSS. CL IN REACH.
--- NOTE | 2017-02-23 21:30 | NUR ---
PATIENT REQUESTS TO MOVE BACK TO BED, TOLERATED WELL WITH STEADY GATE. CL IN REACH.
--- NOTE | 2017-02-23 23:20 | NUR ---
REASSESSMENT COMPLETE PER FLOWSHEET, SEE FOR DETAILS. NO ACUTE CHANGES. VSS.
[2017-02-24] VITALS (24 sets, daily range): BP systolic 123–150; BP diastolic 65–86
--- NOTE | 2017-02-24 01:10 | NUR ---
PATIENT STATES HE'S "VERY UNCOMFORTABLE" PULLED UP AND REPOSITIONED IN BED, STATES FEELING SOME RELIEF. VSS, WILL MONITOR. CL IN REACH.
--- NOTE | 2017-02-24 03:10 | NUR ---
REASSESSMENT COMPLETE PER FLOWHSEET, SEE FOR DETAILS. VSS, CL IN REACH.
--- NOTE | 2017-02-24 04:25 | NUR ---
PATIENT BACK FROM XRAY. TOLERATED WELL, NOW UP IN CHAIR. SET BACK UP ON MONITOR, NORMAL SINUS NOTED.
[2017-02-24 06:11] LABS: HEMATOCRIT 26.3 % (42.0-54.0); HEMOGLOBIN 8.8 g/dL (13.5-17.5); MCHC 33.5 g/dL (31.0-37.0); MCV 89.8 fL (80.0-100.0); MEAN PLATELET VOLUME 8.6 fL (7.4-10.4); RBC 2.93 10x6/uL (4.20-6.10); RDW 13.4 % (11.5-14.5)
[2017-02-24 06:17] LABS: WBC 9.8 10x3/uL (4.8-10.8)
[2017-02-24 06:34] LABS: ALBUMIN 2.6 g/dL (3.4-5.0); ALKALINE PHOSPHATASE 170 U/L (46-116); ALT (SGPT) 24 U/L (10-68); BILIRUBIN - TOTAL 0.51 mg/dL (0.2-1.3); CALC OSMOLALITY 276 mosm/kg (275-300); CALCIUM 8.1 mg/dL (8.5-10.1); CARBON DIOXIDE 29.3 mmol/L (21.0-32.0); CHLORIDE - SERUM 101 mmol/L (98-107); CREATININE - SERUM 0.8 mg/dL (0.6-1.3); GLUCOSE 103 mg/dL (74-106); POTASSIUM - SERUM 3.8 mmol/L (3.5-5.1); PROTEIN - SERUM 5.9 g/dL (6.4-8.2); SODIUM 137 mmol/L (136-145); UREA NITROGEN 20 mg/dL (7-18); eGFR NON AFRICAN AMERICAN > 90 mL/min (90-120)
--- NOTE | 2017-02-24 07:15 | NUR ---
ASSESSMENT COMPLETE. AAO X4. PAIN 5/10, MEDICATION GIVEN IN 0600 HOUR. 2L NC, TRYING TO WEAN. S1S2 NOTED, RADIAL AND PEDAL PULSES PALP. EPICARDIAL TPM AT VVI 60, VMA 10, SINUS TACHY. SENSING. CLEAR LUNGS. HYPOACTIVE BOWEL SOUNDS X4. PASSING GAS. DELAROSA DRAINING CLEAR/YELLOW URINE. SEE FLOWSHEET FOR SKIN ASSESSMENT. DRESSINGS ALL CDI. LT SC CVL, SEE IV FLOWSHEET. WILL CONTINUE TO MONITOR.
--- NOTE | 2017-02-24 09:05 | NUR ---
PT REPORTS PAIN 04/05, REQUESTS PAIN MEDICATION. TOLD HIM I CANNOT GIVE HIM ANY UNTIL 929, BUT WILL BRING IT TO HIM WHEN IT IS TIME
--- NOTE | 2017-02-24 10:22 | NUR ---
Nutrition follow-up: Diet: Regular PO intake ~50% average of last 3 meals Labs reviewed Wt: 189# Will continue to provide food choices with selective menus and honor food preferences. RDN following.
--- NOTE | 2017-02-24 10:50 | NUR ---
Is the patient Alert and Oriented? Yes 0 * How many steps to enter\exit or inside your home? 0 0 * PCP DR. BERMEO 0 * Pharmacy [facility] 0 * Preadmission Environment Home with Family 0 * ADLs Independent 0 * Equipment None 0 * List name and contact numbers for known caregivers / representatives who currently or will assist patient after discharge: SPOUSE: ALAN [phone] * Community resources currently utilized None 0 * Additional services required to return to the preadmission environment? No 0 * Can the patient safely return to the preadmission environment? Yes 0 * Has this patient been hospitalized within the prior 30 days at any hospital? No PATIENT IS AWAKE AND ALERT. HE IS SITTING IN A CHAIR AT THE BEDSIDE. PATIENT STATES HE LIVES AT HOME WITH HIS , ALAN. SHE WILL BE AVAILABLE TO DRIVE HIM HOME AT DISCHARGE. PATIENT STATES HE WAS INDEPENDENT IN ALL ADL'S PRIOR TO COMING TO THE HOSPITAL. PATIENT'S PCP IS DR. BERMEO. HE GETS HIS MEDS FROM [facility]. PATIENT DENEIS USE OF ANY EQUIPMENT AND DENIES EVER HAVING HOME HEALTH CARE. THERE ARE NO STEPS TO ENTER HIS HOME. NO DISCHARGE NEEDS AT THIS TIME.
--- NOTE | 2017-02-24 11:30 | NUR ---
REASSESSMENT COMPLETE. PT NSR WITH OCCASIONAL PAC. S1S2 NOTED. ON ROOM AIR, O2 SAT DROPS TO 85% WHEN WALKING ON ROOM AIR. 93% O2 SAT RESTING. MINIMAL OTHER CHANGES. SEE FLOWSHEET FOR ADDITIONAL FINDINGS
--- NOTE | 2017-02-24 13:00 | NUR ---
RETURNED FROM WALKING WITH PHYSICAL THERAPY, WALKED 500FT.
--- NOTE | 2017-02-24 13:27 | NUR ---
PUT ON BEDSIDE TOILET. SMALL GREEN/BROWN, SOFT BM
--- NOTE | 2017-02-24 15:34 | NUR ---
REASSESSMENT COMPLETE, SEE FLOWSHEET FOR DETAILS. NO CHANGES
--- NOTE | 2017-02-24 19:10 | NUR ---
SHIFT ASSESSMENT COMPLETE. AAOX4, ON ROOM AIR WITH O2 SATS 95-97%. S1S2 NOTED WITH NORMAL SINUS ON MONITOR. LUNG SOUNDS CTA. RR EVEN AND NONLABORED. BOWEL SOUNDS ACTIVE X4. DELAROSA DRAINING CLEAR YELLOW URINE TO GRAVITY. PERIPHERAL PULSES +2. MIDSTERNAL DRESSING C/D/I. SUBSTERNAL DRESSING C/D/I. TPM WIRES X2, TPM SET @ VVI WITH SET RATE OF 60, PACER SENSING. DRESSINGS ON RIGHT LEGS FROM HARVEST SITES ARE C/D/I. PATIENT SITTING IN CHAIR AT THIS TIME. VISITING. VSS, WILL MONITOR.
--- NOTE | 2017-02-24 20:00 | NUR ---
NIGHT MEDS GIVEN.
--- NOTE | 2017-02-24 21:30 | NUR ---
PATIENT REQUESTED TO MOVE BACK TO BED. TOLERATED WELL. STEADY GAIT NOTED.
--- NOTE | 2017-02-24 23:15 | NUR ---
REASSESSMENT COMPLETE. NO ACUTE CHANGES. SEE FLOWSHEET FOR DETAILS.
[2017-02-25] VITALS (24 sets, daily range): BP systolic 123–173; BP diastolic 66–95
--- NOTE | 2017-02-25 01:15 | NUR ---
PATIENT RESTING WITH EYES CLOSED. VSS.
--- NOTE | 2017-02-25 04:45 | NUR ---
BACK FROM XRAY, PATIENT TOLERATED WELL. UP IN CHAIR, CL IN REACH.
[2017-02-25 06:19] LABS: HEMATOCRIT 28.3 % (42.0-54.0); HEMOGLOBIN 9.3 g/dL (13.5-17.5); MCH 29.7 pg (26.0-34.0); MCHC 32.9 g/dL (31.0-37.0); MCV 90.4 fL (80.0-100.0); MEAN PLATELET VOLUME 8.3 fL (7.4-10.4); RBC 3.13 10x6/uL (4.20-6.10); RDW 13.5 % (11.5-14.5); WBC 8.7 10x3/uL (4.8-10.8)
[2017-02-25 06:33] LABS: ALBUMIN 2.6 g/dL (3.4-5.0); ALKALINE PHOSPHATASE 177 U/L (46-116); ALT (SGPT) 25 U/L (10-68); BILIRUBIN - TOTAL 0.52 mg/dL (0.2-1.3); CALC OSMOLALITY 273 mosm/kg (275-300); CALCIUM 8.5 mg/dL (8.5-10.1); CARBON DIOXIDE 29.1 mmol/L (21.0-32.0); CHLORIDE - SERUM 101 mmol/L (98-107); CREATININE - SERUM 0.8 mg/dL (0.6-1.3); GLUCOSE 103 mg/dL (74-106); POTASSIUM - SERUM 3.6 mmol/L (3.5-5.1); PROTEIN - SERUM 6.2 g/dL (6.4-8.2); SODIUM 136 mmol/L (136-145); UREA NITROGEN 17 mg/dL (7-18); eGFR NON AFRICAN AMERICAN > 90 mL/min (90-120)
--- NOTE | 2017-02-25 19:15 | NUR ---
ASSESSMENT COMPLETE AT THIS TIME, SEE FOR DETAILS. JUST AMBULATED PATIENT BACK FROM BATHROOM. PATIENT HAD SMALL FORMED BOWEL MOVEMENT. PATIENT HAD STEADY GATE, AND TOLERATED THE WALK WELL. UP IN CHAIR AT THIS TIME. AAOX4, S1S2 NOTED. LUNG SOUNDS CLEAR, RR EVEN AND NON-LABORED. BOWEL SOUNDS ACTIVE. DELAROSA DRAINING UMM COLORED URINE TO GRAVITY. PULSES +2. DRESSINGS ON CHEST AND RIGHT BELOW ARE C/D/I. RIGHT LEG DRESSINGS ARE C/D/I. LEFT SUBCLAVIAN CVL INTACT, WITHOUT REDNESS, BIOPATCH IN PLACE, SALINE LOCKED. TPM SET @ VVI, RATE OF 60, SENSING. DENIES NEED AT THIS TIME, CL IN REACH.
--- NOTE | 2017-02-25 21:10 | NUR ---
PATEINT ASSISSTED WITH FACIAL GROOMING, ASSISSTED BACK TO BED.
--- NOTE | 2017-02-25 23:15 | NUR ---
REASSESSMENT COMPLETE, SEE FLOWSHEET. RESTING WELL, VSS.
[2017-02-26] VITALS (24 sets, daily range): BP systolic 121–176; BP diastolic 56–96
--- NOTE | 2017-02-26 01:28 | NUR ---
RESTING IN BED WITH EYES CLOSED, VSS.
--- NOTE | 2017-02-26 03:46 | NUR ---
REASSESSMENT COMPLETE, SEE FLOWSHEET. LEG DRESSINGS CHANGES. KARTIK PRESENT, INCISIONS WITHOUT REDNESS, COVERED WITH IODINE OINTMENT AND 4X4 GAUZE.
--- NOTE | 2017-02-26 04:45 | NUR ---
BACK FROM XRAY, TOLERATED WELL, CONNECTED BACK TO MONITOR. VSS.
--- NOTE | 2017-02-26 05:10 | NUR ---
DRESSING CHANGE COMPLETE ON TPM AND OLD CHEST TUBE SITES. INCISIONS WERE WELL SUTURED, WITHOUT REDNESS. TPM WIRES INTACT X2.
[2017-02-26 06:32] LABS: HEMATOCRIT 29.1 % (42.0-54.0); HEMOGLOBIN 9.6 g/dL (13.5-17.5); MCH 29.7 pg (26.0-34.0); MCV 90.1 fL (80.0-100.0); MEAN PLATELET VOLUME 8.2 fL (7.4-10.4); RBC 3.23 10x6/uL (4.20-6.10); RDW 13.1 % (11.5-14.5); WBC 8.9 10x3/uL (4.8-10.8)
[2017-02-26 07:01] LABS: ALBUMIN 2.7 g/dL (3.4-5.0); ALKALINE PHOSPHATASE 175 U/L (46-116); ALT (SGPT) 24 U/L (10-68); BILIRUBIN - TOTAL 0.51 mg/dL (0.2-1.3); CALC OSMOLALITY 279 mosm/kg (275-300); CALCIUM 8.2 mg/dL (8.5-10.1); CARBON DIOXIDE 29.1 mmol/L (21.0-32.0); CHLORIDE - SERUM 102 mmol/L (98-107); CREATININE - SERUM 0.9 mg/dL (0.6-1.3); GLUCOSE 99 mg/dL (74-106); POTASSIUM - SERUM 3.6 mmol/L (3.5-5.1); PROTEIN - SERUM 5.7 g/dL (6.4-8.2); SODIUM 139 mmol/L (136-145); UREA NITROGEN 17 mg/dL (7-18); eGFR NON AFRICAN AMERICAN 90 mL/min (90-120)
--- NOTE | 2017-02-26 19:15 | NUR ---
REPORT RECVD. CARE ASSUMED. INITIAL ASSMNT COMPLETED. SEE FLOWSHEET FOR ALL FINDINGS. UP IN CHAIR AT BEDSIDE. NO DISTRESS. RESP EVEN, SHALLOW AT TIMES. LUNGS CTA, DIM IN BASES. SPO2 95% ON RA. OCC PROD COUGH SEEN. SR ON THE MONITOR. OCC PAC NOTED. TEMP PM VVI 60, SENSING ONLY. PULSES PALP. TRACE EDEMA NOTED. STERNAL DRESSINGS CDI, RIGHT LEG DRESSINGS CDI. TEDS/SCDS IN USE. AFEBRILE. ABD SOFT, BSA X4. F/C PATENT WITH UMM UOP. DENIES DISCOMFORT. C/L IN REACH. PO FLUIDS AT BEDSIDE. CONT CURRENT POC .
--- NOTE | 2017-02-26 21:00 | NUR ---
HS MEDS GIVEN. PRN NORCO PROVIDED FOR PAIN CONTROL. PO FLUIDS AND HS SNACK PROVIDED. DENIES FURTHER NEEDS. C/L IN REACH. CONT CURRENT POC .
--- NOTE | 2017-02-26 23:15 | NUR ---
REASSESSMENT COMPLETED. SEE FLOWSHEET FOR ALL FINDINGS. UP IN CHAIR AT BEDSIDE. NO DISTRESS. RESP EVEN, SHALLOW AT TIMES. LUNGS CTA, DIM IN BASES. SPO2 95% ON RA. OCC PROD COUGH SEEN. SR ON THE MONITOR. OCC PAC NOTED. TEMP PM VVI 60, SENSING ONLY. PULSES PALP. TRACE EDEMA NOTED. STERNAL DRESSINGS CDI, RIGHT LEG DRESSINGS CDI. TEDS/SCDS IN USE. AFEBRILE. ABD SOFT, BSA X4. F/C PATENT WITH UMM UOP. DENIES DISCOMFORT. C/L IN REACH. PO FLUIDS AT BEDSIDE. CONT CURRENT POC .
[2017-02-27] VITALS (9 sets, daily range): BP systolic 130–151; BP diastolic 66–81
--- NOTE | 2017-02-27 01:00 | NUR ---
REMAINS UP IN CHAIR AT BEDSIDE. VSS. SR ON THE MONITOR. OCC PAC SEEN.PRN NORCO EFFECTIVE WITH PAIN CONTROL. C/L IN REACH. CONT CURRENT POC.
--- NOTE | 2017-02-27 03:15 | NUR ---
REASSESSMENT COMPLETED. SEE FLOWSHEET FOR ALL FINDINGS. UP IN CHAIR AT BEDSIDE. NO DISTRESS. RESP EVEN, SHALLOW AT TIMES. LUNGS CTA, DIM IN BASES. SPO2 95% ON RA. OCC PROD COUGH SEEN. SR ON THE MONITOR. OCC PAC NOTED. TEMP PM VVI 60, SENSING ONLY. PULSES PALP. TRACE EDEMA NOTED. STERNAL DRESSINGS CDI, RIGHT LEG DRESSINGS CDI. TEDS/SCDS IN USE. AFEBRILE. ABD SOFT, BSA X4. F/C URINAL IN REACH. DENIES DISCOMFORT. C/L IN REACH. PO FLUIDS AT BEDSIDE. CONT CURRENT POC .
--- NOTE | 2017-02-27 04:08 | NUR ---
DELAROSA CATHETER REMOVED PER ORDERS. CATHETER INTACT. BLADDER NON PALP.
--- NOTE | 2017-02-27 05:05 | NUR ---
RETURNED FROM XRAY AND ASSISTED TO CHAIR. STABLE CONDITION. TEMP PM INTACT AT VVI 60. SR ON THE MONITOR. SNACK AND PO FLUIDS PROVIDED. C/L PLACED IN REACH. CONT CURRENT POC.
[2017-02-27 06:19] LABS: HEMATOCRIT 29.7 % (42.0-54.0); MCHC 33.7 g/dL (31.0-37.0); MCV 89.2 fL (80.0-100.0); MEAN PLATELET VOLUME 8.4 fL (7.4-10.4); RBC 3.33 10x6/uL (4.20-6.10); WBC 9.7 10x3/uL (4.8-10.8)
[2017-02-27 06:47] LABS: ALBUMIN 2.6 g/dL (3.4-5.0); ALKALINE PHOSPHATASE 166 U/L (46-116); ALT (SGPT) 26 U/L (10-68); CALC OSMOLALITY 274 mosm/kg (275-300); CALCIUM 8.8 mg/dL (8.5-10.1); CARBON DIOXIDE 25.9 mmol/L (21.0-32.0); CHLORIDE - SERUM 101 mmol/L (98-107); CREATININE - SERUM 0.8 mg/dL (0.6-1.3); GLUCOSE 115 mg/dL (74-106); POTASSIUM - SERUM 4.1 mmol/L (3.5-5.1); PROTEIN - SERUM 6.3 g/dL (6.4-8.2); SODIUM 136 mmol/L (136-145); UREA NITROGEN 18 mg/dL (7-18); eGFR NON AFRICAN AMERICAN > 90 mL/min (90-120)
--- NOTE | 2017-02-27 07:15 | NUR ---
REPORT RECIEVED FROM [employer] WORKER NURSE. PT RESTING IN CHAIR QUIETLY. NO S/SX OF ACUTE DISTRESS NOTED AT THIS TIME. VSS. CALL LIGHT IN REACH. ASSESSMENT COMPLETE PER FLOWSHEET. WILL CONT TO ASSESS FOR CHANGES.
[2017-02-27] MEDS ORDERED: HEMOCYTE PLUS C1 CAP PO (09:16)
[2017-02-27] MEDS ORDERED: FLOMAX0.4 MG PO (09:16)
[2017-02-27] MEDS ORDERED: LOPRESSOR25 MG PO (09:17)
[2017-02-27] MEDS ORDERED: ASPIRIN81 MG PO (09:18)
[2017-02-27] MEDS ORDERED: SENOKOT-S TABLE1 TAB PO (09:19)
[2017-02-27] MEDS ORDERED: COLACE100 MG PO (09:19)
[2017-02-27] MEDS ORDERED: HYDROCODONE-APA1 TAB PO (09:20)
--- NOTE | 2017-02-27 10:30 | NUR ---
PT REQUESTED TO GO FOR A WALK. ACCOMPANIED PT FOR WALK AROUND UNIT. NO BALANCE OR INSTABILITY ISSUES NOTED WHEN AMBULATING.
--- NOTE | 2017-02-27 11:00 | NUR ---
MINOO MERRITT AT BEDSIDE TO REMOVED TPM WIRES AND CENTRAL LINE.
--- NOTE | 2017-02-27 11:30 | NUR ---
SHAINA RN AT BEDSIDE REMOVING KARTIK FROM RIGHT LEG. INCISION SITES OPEN TO AIR AND WELL APPROXIMATED. NO S/SX OF INFECTION NOTED.
--- NOTE | 2017-02-27 12:00 | NUR ---
DISCHARGE INSTRUCTIONS REVIEWED WITH PT. QUESTIONS AND CONCERNS ANSWERED. [facility]. RX PRINTED FOR [employer]. FOLLOW UP APPT ADDRESSED WITH PT. STATED TO PT THAT I WOULD MAKE APT WITH DR. RIVAS. PT REQUESETED TO MAKE APT HIMSELF. DISCHARGE TEACHING COMPLETED AND PRINT OUT PROVIDED.
--- NOTE | 2017-02-27 14:00 | NUR ---
AT BEDSIDE. MINOO MERRITT NOTIFIED OF ARRIVAL.
--- NOTE | 2017-02-27 15:09 | NUR ---
PT WHEELED OUT FOR TRANSPORT. ALL D/C INSRUCTIONS REVIWED BY MYSELF AND MINOO MERRITT WITH PRESENT.
== END 2017-02-27 15:10 | disposition home or self-care (01) | DRG 234 ==
LOC: D.ER 11:10 → D.ICU 13:27 → D.CVICU 13:27 → D.M2 13:27 → D.ICU 02-20 08:08 → D.CVICU 02-21 10:10
PROVIDERS: Emergency Medicine; Internal Medicine Cardiovascular Disease; ADMIT Internal Medicine Interventional Cardiology
PROC: 02100ZC Bypass Coronary Artery, One Artery from Thoracic Artery, Open Approach (ICD-10-PCS; 2017-02-17)
PROC: B2151ZZ Fluoroscopy of Left Heart using Low Osmolar Contrast (ICD-10-PCS; 2017-02-17)
PROC: 4A023N7 Measurement of Cardiac Sampling and Pressure, Left Heart, Percutaneous Approach (ICD-10-PCS; 2017-02-17)
PROC: 021309W Bypass Coronary Artery, Four or More Arteries from Aorta with Autologous Venous Tissue, Open Approach (ICD-10-PCS; 2017-02-17)
PROC: B2111ZZ Fluoroscopy of Multiple Coronary Arteries using Low Osmolar Contrast (ICD-10-PCS; principal; 2017-02-17 10:00)
PROC: 06BP0ZZ Excision of Right Saphenous Vein, Open Approach (ICD-10-PCS; 2017-02-20)
PROC: 5A1221Z Performance of Cardiac Output, Continuous (ICD-10-PCS; 2017-02-20)
PROC: 0T7D8ZZ Dilation of Urethra, Via Natural or Artificial Opening Endoscopic (ICD-10-PCS; 2017-02-20)
PROC: 0T9B80Z Drainage of Bladder with Drainage Device, Via Natural or Artificial Opening Endoscopic (ICD-10-PCS; 2017-02-20)
PROC: 0T9B70Z Drainage of Bladder with Drainage Device, Via Natural or Artificial Opening (ICD-10-PCS; 2017-02-23)
DX: I25.110 Atherosclerotic heart disease of native coronary artery with unstable angina pectoris (principal); G47.00 Insomnia, unspecified; N35.9 Urethral stricture, unspecified; D64.9 Anemia, unspecified; E87.70 Fluid overload, unspecified; R33.9 Retention of urine, unspecified

== ENCOUNTER → 2017-03-16 10:21 | Outpatient (CLI) | payer BC ==
[2017-02-20 09:50] VITALS: BMI 22.8
[~2017-03-16 10:21] MED LIST: ASPIRIN81 MG PO; COLACE100 MG PO; FLOMAX0.4 MG PO; HEMOCYTE PLUS C1 CAP PO; HYDROCODONE-APA1 TAB PO; LISINOPRIL10 MG PO; LOPRESSOR25 MG PO; SENOKOT-S TABLE1 TAB PO; TRAZODONE HCL50 MG PO
[2017-03-16 10:49] LABS: HEMATOCRIT 36.2 % (42.0-54.0); MCH 29.6 pg (26.0-34.0); MCHC 33.1 g/dL (31.0-37.0); MCV 89.4 fL (80.0-100.0); MEAN PLATELET VOLUME 7.9 fL (7.4-10.4); RBC 4.05 10x6/uL (4.20-6.10); RDW 12.5 % (11.5-14.5); WBC 9.4 10x3/uL (4.8-10.8)
[2017-03-16 11:00] LABS: CALC OSMOLALITY 285 mosm/kg (275-300); CALCIUM 9.6 mg/dL (8.5-10.1); CARBON DIOXIDE 29.9 mmol/L (21.0-32.0); CHLORIDE - SERUM 104 mmol/L (98-107); CREATININE - SERUM 0.9 mg/dL (0.6-1.3); GLUCOSE 92 mg/dL (74-106); POTASSIUM - SERUM 4.6 mmol/L (3.5-5.1); SODIUM 142 mmol/L (136-145); UREA NITROGEN 20 mg/dL (7-18); eGFR NON AFRICAN AMERICAN 90 mL/min (90-120)
== END | disposition home or self-care (01) ==
LOC: D.RAD 08:15
PROVIDERS: Internal Medicine Cardiovascular Disease
DX: D64.9 Anemia, unspecified (principal); J90 Pleural effusion, not elsewhere classified

== ENCOUNTER → 2020-06-19 08:19 | Outpatient (CLI) | payer BC, MEDICARE ==
[2017-02-20 09:50] VITALS: BMI 22.8
== END | disposition home or self-care (01) ==
LOC: D.HCCARDIO 08:19
PROVIDERS: ATTEND Internal Medicine Cardiovascular Disease
DX: I25.10 Atherosclerotic heart disease of native coronary artery without angina pectoris (principal)

== ENCOUNTER 2020-08-06 07:18 | Day surgery (SDC) | payer BC, MEDICARE ==
[~2020-08-06] VITALS: Ht 182.9 cm; Wt 77.4 kg
--- NOTE | ~2020-08-06 | HEMODYNAMI ---
PATIENT:AKI MOSS MEDICAL RECORD: [id number] : 51 LOCATION:[facility] ADMISSION DATE: 08/06/20 Generatedon:08/06/20209:40 Patient name: AKI MOSS Patient #: [id number] SSN: DO B: 1955 Date of study: 08/06/2020 Page: Of Hemodynamic Procedure Report Patient Data Patient Demographics Procedure consent was obtained First Name: AKI Gender: Male Last Name: AJAY : 1955 [facility] Initial: SAIMA Age: 65 year(s) Patient #: [id number] Race: Additional ID: [id number] Contact details Address: [address] [place] [address] [facility] State: [place] City: [place] Zip code: [address] Past Medical History Allergies Allergen Reaction Date Comments Reported Iodine 02/17/2017 Other allergy 08/06/2020 [facility] Admission Admission Data Admission Date: 08/06/2020 Admission Time: 7:18 Arrival Date: 08/06/2020 Arrival Time: 0:00 Height (in.): 72.05 BSA: 1.99 (m2) Height (cm.): 183 BMI: 22.99 (kg/m2) Weight (lbs.): 169.76 Weight (kg.): 77 Lab Results Lab Result Date: 08/06/2020 Lab Result Time: 0:00 Biochemistry Name Units Result Min Max BUN mg/dl 20 --(----)*- 7 18 Creatinine mg/dl 1.1 --(--*-)-- 0.6 1.3 eGFR ml/min 70.80250 *-(----)-- 90 120 NONAFRICAN CBC Name Units Result Min Max Hematocrit % 41.2 -*(----)-- 42 54 Hemoglobin g/dl 14.7 --(-*--)-- 13.5 17.5 Procedure Procedure Types Cath Procedure Diagnostic Procedure C C w/Coronaries w/Grafts Sedation Charges Moderate Sedation up to 30 minutes Procedure Description Procedure Date Procedure Date: 08/06/2020 Procedure Start Time: 9:15 Procedure End Time: 9:38 Procedure Staff Name Function Alan Sanchez MD Performing Physician Tatiana Osuna RN Nurse Kyra Bowman RT Scrub Audra Gutierrez RT Monitor Procedure Data Cath Procedure Fluoroscopy Diagnostic fluoroscopy Total fluoroscopy Time: 5 time: 5 min min Diagnostic fluoroscopy Total fluoroscopy dose: 774 dose: 774 mGy mGy Contrast Material Contrast Material Type Amount (ml) Isovue 300 108 Entry Location Entry Primary Successful Side Size Upsize Upsize Entry Closure Succes sful Closure Location (Fr) 1 (Fr) 2 (Fr) Remarks Device Remarks Femoral Right 5 Fr Exoseal artery Estimated blood loss: 5 ml Diagnostic catheters Device Type Used For End Catheter Placement MULTIPACK JL 4.0 5Fr Left Coronary catheter Angiography DIAGNOSTIC AR MOD 5Fr Multi-vessel Catheter ([id number]) Angiography DIAGNOSTIC LCB 5Fr Multi-vessel catheter ([id number]) Angiography DIAGNOSTIC IM 5Fr Multi-vessel catheter ([id number]) Angiography MULTIPACK Pigtail 5 Fr LV Angiography catheter Procedure Complications No complications Procedure Medications Medication Administration Route Dosage Oxygen etCO2 Nasal cannula 2 l/min Lidocaine 2% added to field 20 Heparin Flush Bag added to field 2 bags (1000units/500ml NS) 0.9% NaCl I.V. 100 ml/hr Versed I.V. 1 mg Fentanyl I.V. 50 mcg Versed I.V. 1 mg Fentanyl I.V. 50 mcg Versed I.V. 1 mg Fentanyl I.V. 50 mcg Versed I.V. 1 mg Fentanyl I.V. 50 mcg Hemodynamics Rest BSA: 1.99 (m2) HGB: 14.7 (g/dl) O2 Consumption: Estimated: 221.71 (ml/min) O2 Co nsumption indexed: Estimated:111.41 (ml/min/m) Heart Rate: 57 (bpm) Pressure Samples Time Site Value (mmHg) Purpose Heart Use Rate(bpm) 9:35 LV 117/-1,22 Snapshot 60 9:35 AO 115/50(77) Pullback 59 9:35 LV 116/0,22 Pullback 59 Gradients Valve Time Site 1 Site 2 Mean SEP/DFP Peak To Heart Use (mmHg) (sec/min) Peak Rate (mmHg) (bpm) Aortic 9:35 LV AO 9 12 1 59 116/0,22 115/50(77) Calculations Valve P-P Mean Valve Index Valve Source Name Gradient Area Flow (cm2) Aortic 1 9 1 9 Snapshots Pre Cath Intra NCS Post Cath Vital Signs Time Heart Resp SPO2 etCO2 NIBP (mmHg) Rhythm Pain Sedation Rate (ipm) (%) (mmHg) Status Level (bpm) 8:44:36 58 17 100 0 174/77(134) SB 0 (11) 10(A) , No pain 8:49:00 65 17 99 36.9 173/94(147) SB 0 (11) 10(A) , No pain 8:53:28 55 12 96 36.9 146/71(127) SB 0 (11) 10(A) , No pain 8:57:48 55 13 98 35.4 146/76(128) SB 0 (11) 10(A) , No pain 9:02:10 56 10 93 33.9 137/68(114) SB 0 (11) 10(A) , No pain 9:06:31 55 11 94 15.8 129/60(108) SB 0 (11) 10(A) , No pain 9:10:47 52 11 95 15 134/66(119) SB 0 (11) 10(A) , No pain 9:15:05 53 10 92 35.4 119/61(95) SB 0 (11) 9(A) , No pain 9:19:16 54 10 93 39.2 122/65(107) SB 0 (11) 9(A) , No pain 9:23:30 58 10 94 39.9 127/62(104) SB 0 (11) 9(A) , No pain 9:27:47 55 10 94 41.4 121/61(99) SB 0 (11) 9(A) , No pain 9:32:00 65 14 94 39.1 130/63(113) SB 0 (11) 9(A) , No pain 9:36:19 60 11 93 32.4 116/58(94) SB 0 (11) 9(A) , No pain 9:38:38 55 13 93 24.8 119/59(93) SB 0 (11) 10(A) , No pain Medications Time Medication Route Dose Verified Delivered Reason Notes Effe ctiveness by by 8:43:33 Oxygen etCO2 2 Alan Buffie used for Nasal l/min Daniel Osuna RN procedure cannula 8:43:40 Lidocaine 2% added 20ml Alan Alan for local to vial Daniel Sanchez MD anesthetic field 8:43:56 Heparin Flush added 2 Alan Alan used for Bag to bags Daniel Sanchez MD procedure (1000units/500ml field NS) 8:44:04 0.9% NaCl I.V. 100 Alan Buffie Per ml/hr Daniel Osuna RN physician 9:05:11 Versed I.V. 1 mg Alan Buffie for Daniel Osuna RN sedation 9:05:21 Fentanyl I.V. 50 Alan Buffie for mcg Daniel Osuna RN sedation 9:10:20 Versed I.V. 1 mg Alan Buffie for Daniel Osuna RN sedation 9:10:31 Fentanyl I.V. 50 Alan Buffie for mcg Daniel Osuna RN sedation 9:15:51 Versed I.V. 1 mg Alan Buffie for Daniel Osuna RN sedation 9:15:54 Fentanyl I.V. 50 Alan Buffie for mcg Daniel Osuna RN sedation 9:32:16 Versed I.V. 1 mg Alan Buffie for Daniel Osuna RN sedation 9:32:19 Fentanyl I.V. 50 Alan Buffie for mcg Daniel Ousna RN sedation Procedure Log Time Note 8:28:48 Informed consent obtained and on chart 8:29:40 Arrival Date: 08/06/2020 12:00:00 AM 8:31:15 Patient Height : 72.05 inches 8:31:21 Patient Weight : 169.76 lbs 8:33:40 Procedure Status Elective Heart Cath (OP). 8:33:44 Time tracking: Regular hours (M-F 7:00 - 5:00) 8:34:32 Patient allergic to Other allergyNKDA 8:34:41 H&P Date Dictated: 08/06/2020 H&P Addendum completed by physician on day of procedure. (MUST COMPLETE FOR ALL OUTPATIENTS), New H&P dictated by physician.. 8:34:46 Tatiana Osuna RN sent for patient. Start room use. 8:35:33 Stress Test: yes; abnormal INFERIOR AND LATERAL 8:36:21 Procedure type changed to Cath procedure, Diagnostic procedure, LHC, LHC w/Coronaries w/Grafts, Sedation Charges, Moderate Sedation up to 30 minutes 8:36:36 Plan of Care:Hemodynamics will remain stable., Cardiac rhythm will remain stable., Comfort level will be maintained., Respiratory function will remain adequate., Patient/ family verbilizes understanding of procedure., Procedure tolerated without complication., Recovers from procedure without complications.. 8:36:46 Patient received from Pre/Post Procedure Room to [facility] 1 Alert and oriented. Tansferred to table in Supine position. 8:36:48 Warm blankets applied, and claudia hugger turned on for patient comfort. 8:36:49 Correct patient and procedure confirmed by team. 8:43:18 Vital chart was started 8:43:33 Oxygen 2 l/min etCO2 Nasal cannula was administered by Tatiana Osuna RN; used for procedure; Verbal order read back and verified. 8:43:40 Lidocaine 2% 20ml vial added to field was administered by Alan Sanchez MD; for local anesthetic; Verbal order read back and verified. 8:43:56 Heparin Flush Bag (1000units/500ml NS) 2 bags added to field was administered by Alan Sancehz MD; used for procedure; Verbal order read back and verified. 8:44:04 0.9% NaCl 100 ml/hr I.V. was administered by Tatiana Osuna RN; Per physician; Verbal order read back and verified. 8:45:12 ECG and BP/O2 sat monitors applied to patient. 8:45:13 Baseline sample Acquired. 8:45:20 Rhythm: sinus rhythm 8:45:21 Full Disclosure recording started 8:45:22 8:45:23 Pre-procedure instructions explained to patient. 8:45:24 Pre-op teaching completed and patient verbalized understanding. 8:45:26 Family in patients room. 8:45:28 Patient NPO since Midnight. 8:45:34 Is the patient allergic to Iodine/contrast media? No. 8:45:37 Is patient on blood thinner?No 8:45:41 Patient diabetic? No. 8:45:44 ----Pre-sedation anethsthesia assessment.---- 8:45:45 ----Pre-sedation anethsthesia assessment.---- 8:45:49 Previous problem with sedation/anesthesia? No ? 8:45:51 Snore? Yes 8:45:55 Sleep apnea? No 8:45:58 Deviated septum? Unknown 8:46:01 Opens mouth fully? Yes 8:46:03 Sticks out tongue? Yes 8:46:07 Airway obstruction? No ? 8:46:11 Dentures? No ? 8:46:19 Pre procedure: right dorsailis pedis pulse 2+ Normal; easily identifiable; not easily obliterated 8:46:29 IV patent on arrival in left hand with 0.9% NaCl at [facility]. 8:47:03 Lab Result : BUN 20 mg/dl 8:47:03 Lab Result : Creatinine 1.1 mg/dl 8:47:03 Lab Result : eGFR NONAFRICAN 70.31361 ml/min 8:47:03 Lab Result : Hemoglobin 14.7 g/dl 8:47:03 Lab Result : Hematocrit 41.2 % 8:47:10 Lab results completed and on chart. 8:47:16 Right groin area was prepped with chlora-prep and draped in sterile fashion 8:47:21 Alarms reviewed by R. N. 8:47:22 Sharps counted by scrub and verified by R.N. 8:47:27 Use device set Femoral Dx 8:47:28 ACIST Syringe (83587) opened to sterile field. 8:47:29 Bag Decanter (2002) opened to sterile field. 8:47:30 Medline Cath Pack ([id number]) opened to sterile field. 8:47:31 ACIST Hand Control (74981) opened to sterile field. 8:47:32 ACIST Manifold (84107) opened to sterile field. 8:47:33 DIAGNOSTIC Multipack 5Fr catheter set ([id number]) opened to sterile field. 8:47:33 Tegaderm 4 x 4 (1626W) opened to sterile field. 8:47:35 SHEATH 5FR Logan ([id number]) opened to sterile field. 8:47:36 EMERALD Guide Wire (479-119) opened to sterile field. 9:02:11 Physician arrived 9:02:11 --------ALL STOP TIME OUT------ 9:02:14 Final Timeout: patient, procedure, and site verified with staff and physician. All members of the team are in agreement. 9:02:15 Right groin site verified by team. 9:02:21 Fire Safety Assessment: A--An alcohol-based skin anteseptic being used preoperatively., C--Open oxygen or nitrous oxide is being used., D--An ESU, laser, or fiber-optic light is being used. 9:02:27 Physical assessment completed. ASA score P 2 - A patient with mild systemic disease as per Alan Sanchez MD. 9:05:11 Versed 1 mg I.V. was administered by Tatiana Osuna RN; for sedation; Verbal order read back and verified. 9:05:21 Fentanyl 50 mcg I.V. was administered by Tatiana Osuna RN; for sedation; Verbal order read back and verified. 9:05:54 2) 60-89 Mildly reduced kidney function, and other findings (as for stage 1) point to kidney disease. 9:05:57 Maximum allowable contrast dose (3.7 X eGFR X 0.75)197 ml. 9:06:02 Sedation plan: IV Moderate Sedation Medication:Versed, Fentanyl 9:06:16 Procedure started. 9:10:20 Versed 1 mg I.V. was administered by Tatiana Osuna RN; for sedation; Verbal order read back and verified. 9:10:31 Fentanyl 50 mcg I.V. was administered by Tatiana Osuna RN; for sedation; Verbal order read back and verified. 9:15:51 Versed 1 mg I.V. was administered by Tatiana Osuna RN; for sedation; Verbal order read back and verified. 9:15:54 Fentanyl 50 mcg I.V. was administered by Tatiana Osuna RN; for sedation; Verbal order read back and verified. 9:15:56 Local anesthetic to right femoral artery with Lidocaine 2% by Alan Sanchez MD.INITIAL ACCESS ONLY 9:18:27 A 5 Fr sheath was inserted into the Right Femoral artery 9:18:30 A MULTIPACK JL 4.0 5Fr catheter was advanced over the wire and used for Left Coronary Angiography. 9:20:16 LCA angiography performed. 9:20:19 Injector settings: Ml/sec: 3, Volume: 6, 9:20:26 Catheter removed. 9:20:33 A DIAGNOSTIC AR MOD 5Fr Catheter ([id number]) was advanced over the wire and used for Multi-vessel Angiography. 9:22:19 RCA angiography performed. 9:22:22 Injector settings: Ml/sec: 3, Volume: 6, 9:22:58 SVG to RCA angiography performed. 9:23:10 Injector settings: Ml/sec: 3, Volume: 6, 9:24:54 SVG to Circ angiography performed. 9:26:48 Injector settings: Ml/sec: 3, Volume: 6, 9:26:49 Catheter removed. 9:27:08 A DIAGNOSTIC LCB 5Fr catheter ([id number]) was advanced over the wire and used for Multi-vessel Angiography. 9:28:56 SVG to Diag angiography performed. 9:30:47 Injector settings: Ml/sec: 3, Volume: 6, 9:31:05 Catheter removed. 9:31:21 A DIAGNOSTIC IM 5Fr catheter ([id number]) was advanced over the wire and used for Multi-vessel Angiography. 9:32:02 CORADO angiography performed. 9:32:16 Versed 1 mg I.V. was administered by Tatiana Osuna RN; for sedation; Verbal order read back and verified. 9:32:19 Fentanyl 50 mcg I.V. was administered by Tatiana Osuna RN; for sedation; Verbal order read back and verified. 9:32:50 LCA angiography performed. 9:32:53 Injector settings: Ml/sec: 3, Volume: 6, 9:33:22 Catheter removed. 9:33:48 A MULTIPACK Pigtail 5 Fr catheter was advanced over the wire and used for LV Angiography. 9:35:08 LV hemodynamics recorded. 9:35:09 LV gram done using BAUTISTA 9:35:12 Injector settings: Ml/sec: 5, Volume: 15, 9:36:05 EF : 55 % 9:36:08 EXOSEAL 5Fr (EX500) opened to sterile field. 9:36:19 Sheath removed intact; hemostasis achieved with Exoseal to the Right Femoral artery. 9:36:20 Procedure ended.(Physican Out) 9:36:36 Fluoroscopy time 05.00 minutes. 9:36:39 Flurop Dose total: 774 9:36:39 Fluoroscopy dose: 774 mGy 9:36:48 Dose Area Product 72853 mGy/cm. 9:36:59 Contrast amount:Isovue 300 108ml. 9:37:02 Maximum allowable dose exceeded? No. 9:37:03 Sharps counted by scrub and verified by R.N. 9:37:05 Insertion/operative site no bleeding no hematoma. 9:37:07 Post-op/insertion site Right Femoral artery dressed using a 4 x 4 and Tegaderm. 9:37:09 Post Procedure Pulses reassessed and unchanged 9:37:12 Post procedure rhythm: unchanged. 9:37:15 Estimated blood loss: 5 ml 9:37:17 Post procedure instruction explained to patient.Patient verbalizes understanding. 9:37:18 Patient needs reinforcement of post procedure teaching. 9:37:19 Procedure and supply charges have been captured, reviewed, submitted and are correct. 9:38:43 Procedure Complication : No complications 9:38:45 Vital chart was stopped 9:38:48 [facility] Findings: MVD- MD will discuss options w/ pt 9:38:51 Operative report dictated upon procedure completion. 9:38:51 See physician's report for complete and final results. 9:38:53 Report given to Pre/Post Procedure Room. 9:38:56 Patient transfered to Pre/Post Procedure Room with Stretcher. 9:38:58 Procedure ended. 9:38:58 Full Disclosure recording stopped 9:39:05 End room use (Document Last) 9:39:35 End room use (Document Last) 9:40:06 End room use (Document Last) Device Usage Item Name Manufacture Quantity Catalog Hospital Part Current Minimal L ot# / Number Charge Number Stock Stock Serial# Code ACIST Acist 1 [id number] 175813 929148 [id number] 20 Syringe Medical (25274) Systems Inc Bag Microtek 1 457704 43543 917177 5 Decanter Medical Inc. () Medline Medline 1 [id number] 812629 21901 622020 5 Cath Pack ([id number]) ACIST Hand Acist 1 66092 045974 152300 980731 5 Control Medical (41949) Systems Inc ACIST Acist 1 12725 324186 720528 640292 5 [facility] Medical (63679) Systems Inc DIAGNOSTIC Cardinal 1 [id number] 937430 37748 656854 30 Multipack Health 5Fr catheter set (YF7713) Tegaderm 4 3M 1 1626W 439687 687389 717783 5 x 4 (1626W) SHEATH 5FR Terumo 1 VIT320 327928 040967 633873 5 Logan (LEL852) EMERALD Cardinal 1 502-455 518207 558790 136870 5 Guide Wire Health (502-455) MULTIPACK Cardinal 1 451329 5 JL 4.0 5Fr Health catheter DIAGNOSTIC Cardinal 1 216387S 245339 359166 438826 15 AR MOD 5Fr Health Catheter (506919V) DIAGNOSTIC Cardinal 1 379963T 130963 836522 077955 5 LCB 5Fr Health catheter (444567N) DIAGNOSTIC Cardinal 1 [id number] 250348 393221 836352 5 IM 5Fr Health catheter (919520U) MULTIPACK Cardinal 1 722098 5 Pigtail 5 Health Fr catheter EXOSEAL 5Fr Cardinal 1 EX500 510847 870042 364479 10 (EX500) Health Signature Audit Ewing Stage Time Signature Unsigned Intra-Procedure 08/06/2020 Audra Gutierrez 9:39:36 AM RT(R) Intra-Procedure 08/06/2020 Tatiana Osuna RN 9:40:06 AM Intra-Procedure 08/06/2020 Alan Sanchez MD 9:40:32 AM [facility] [address] [place] [address]
[2020-08-06 07:56] VITALS: BP 172/75; Ht 182.9 cm; Wt 77.4 kg
[2020-08-06 08:15] LABS: BASOPHILS 0.9 % (0-2); EOSINOPHILS 2.9 % (0-7); HEMATOCRIT 41.2 % (42.0-54.0); HEMOGLOBIN 14.7 g/dL (13.5-17.5); IMMATURE GRANULOCYTES 0.1 % (0-5); LYMPHOCYTES 25.6 % (15-50); MCH 31.7 pg (26.0-34.0); MCHC 35.7 g/dL (31.0-37.0); MEAN PLATELET VOLUME 8.4 fL (7.4-10.4); MONOCYTES 10.2 % (2-11); NEUTROPHILS 60.3 % (40-80); PLATELET COUNT 207 10x3/uL (130-400); RBC 4.63 10x6/uL (4.20-6.10)
[2020-08-06 08:33] LABS: ANION GAP 12.4 mmol/L (8-16); CALCIUM 8.8 mg/dL (8.5-10.1); CARBON DIOXIDE 25.3 mmol/L (21.0-32.0); CREATININE - SERUM 1.1 mg/dL (0.6-1.3); LDL-HDL RATIO 2.8 ratio (1.5-3.5); POTASSIUM - SERUM 3.7 mmol/L (3.5-5.1)
--- NOTE | 2020-08-06 09:55 | NUR ---
PT RECEIVED VIA STRETCHER FROM COSMETIC SALES ADVISOR FOR [employer], PT SLEEPING BUT VERBALLY AROUSABLE. PT DENIES PAIN OR DISCOMFORT AT THIS TIME. IV PATENT INFUSING VIA L ARM PER ORDERS. R GROIN SOFT, DRESSING CDI NO S/S HEMATOMA OR BLEEDING NOTED. LEG PINK AND WARM, PEDAL PULSES PALPABLE. PT INSTRUCTED TO KEEP HEAD ON PILLOW AND LEG STRAIGHT, HE VERBALIZED UNDERSTANDING. PT PLACED ON CARIDAC MONITORS AND O2 VIA NC AT 2L. HR SB 53, BP 132/63, RR 12, SAT 98. CALL LIGHT IN REACH.
--- NOTE | 2020-08-06 10:17 | NUR ---
PT RESTING COMFORTABLY, DENIES PAIN OR NEEDS AT THIS TIME. R GROIN SOFT, DRESSING CDI NO S/S HEMATOMA OR BLEEDING. CALL LIGHT IN REACH. VSS AT PRESENT
--- NOTE | 2020-08-06 11:03 | NUR ---
R GROIN SOFT, NO S/S HEMATOMA NOTED. 02 REMOVED SAT 97 ON ROOM AIR. HOB ELEVATED SLIGHTLY. PT TOLERATING PO FLUIDS. CALL LIGHT IN REACH. NOTIFIED BY PHONE, SHE WAS INFORMED OF HIS DISCHARGE TIME.
--- NOTE | 2020-08-06 11:30 | NUR ---
GROIN SOFT, DRESSING REMAINS CDI NO S/S HEMATOMA OR BLEEDING NOTED. VSS. HOB ELEVATED MORE, SANDWICH TRAY SERVED. PT DENIES PAIN OR NEEDS AT THIS TIME. CALL LIGHT IN REACH
--- NOTE | 2020-08-06 11:45 | NUR ---
DISCHARGE INSTRUCTIONS REVIEWED W PT, HE VERBALIZED UNDERSTANDING. IV REMOVED W CATH INTACT. MONITORS REMOVED. GROIN SOFT, NO S/S HEMATOMA. PT UP TO DRESS FOR DISCHARGE. 1225 PT AMBULATED TO BR, VOIDING W/O DIFFICULITY.
--- NOTE | 2020-08-06 12:05 | NUR ---
PT DISCHARGED VIA WC TO WAITING IN PRIVATE VEHICLE. PT HAD ALL BELONGINGS AND DISCHARGE INSTRUCTIONS
== END 2020-08-06 12:05 | disposition home or self-care (01) ==
LOC: D.CATH 07:18
PROVIDERS: ATTEND Internal Medicine Cardiovascular Disease
DX: I25.119 Atherosclerotic heart disease of native coronary artery with unspecified angina pectoris (principal); R94.39 Abnormal result of other cardiovascular function study; I10 Essential (primary) hypertension; I35.1 Nonrheumatic aortic (valve) insufficiency